=== PATIENT | female | born 1940 | race Caucasian/White ===

== ENCOUNTER 2020-04-02 09:10 | Emergency (ER) | payer MEDICARE, SELFPAY ==
[2020-04-02 09:21] VITALS: BP 123/66; PULSE 52; RESP 14; TEMP 36.4; O2SAT 98
--- NOTE | 2020-04-02 09:33 | ED.EYEPROB ---
HPI - Eye Problem General Chief complaint: Eye Problems Stated complaint: poss pink eye Time Seen by Provider: 04/02/20 09:34 Source: patient and RN notes reviewed Mode of arrival: ambulatory Limitations: no limitations History of Present Illness HPI Narrative: 79-year-old female who presents to [facility] with complaints of 2 day history of bilateral eye redness with burning, reports that her left eye is worse. Patient states that her hat and cap sewer back up and she has been cleaning up around her house sanitizing things then she developed some thick yellow drainage to her left leg with redness, burning to bilateral eyes. Patient states that vision to her left eye is blurry with excess tearing, left eye is red rimmed with some swelling and redness to eye lid, yellowish drainage stated from left eye. Right eye sclera clear with no swelling of right eye but patient verbalizes burning to her right eye. MD chief complaint: eye redness Onset (ago): day(s) (2) Onset description: gradual Duration: progressively worsening Location: both eyes Eye Symptoms: burning, redness, discharge and blurry vision (left) Place: home Mechanism: none Severity: moderate Severity scale (1-10): 4 If Pain, Quality: burning Context: other (cleaning) Associated symptoms: none Treatments Prior to Arrival: OTC eye drops Related Data Home Medications Medication Instructions Recorded Confirmed albuterol sulfate [Ventolin HFA] 2 puff INHALATION QID PRN 04/02/20 04/02/20 celecoxib 200 mg PO DAILY 04/02/20 04/02/20 cyanocobalamin (vitamin B-12) 1,000 mcg IM MONTHLY 04/02/20 04/02/20 escitalopram oxalate 10 mg PO DAILY 04/02/20 04/02/20 famotidine 20 mg PO BID 04/02/20 04/02/20 fluticasone propionate 2 spray INTRANASAL DAILY 04/02/20 04/02/20 furosemide 40 mg PO DAILY 04/02/20 04/02/20 gabapentin 100 mg PO HS 04/02/20 04/02/20 meclizine 25 mg PO TID 04/02/20 04/02/20 potassium chloride [Klor-Con M20] 20 meq PO DAILY 04/02/20 04/02/20 prochlorperazine maleate 10 mg PO Q6H PRN 04/02/20 04/02/20 Allergies Allergy/AdvReac Type Severity Reaction Status Date / Time codeine Allergy Mild Rash Verified 04/02/20 09:42 Review of Systems Review of Systems: Narrative: CONSTITUTIONAL: Denies fever, chills, or sweats. EYES:Positive for blurry vision left eye with,redness,and yellow discharge and burning sensation with right eye having burning to her right eye.. ENT: Denies rhinorrhea, congestion, sore throat, or otalgia. CARDIOVASCULAR: Denies chest pain, palpitations, bilateral peripheral edema. RESPIRATORY: Denies cough or dyspnea. GASTROINTESTINAL: Denies abdominal pain, nausea, vomiting, or diarrhea. GENITOURINARY: Denies dysuria or hematuria. SKIN: Denies rash or itching. MUSCULOSKELETAL: Denies back pain, joint pain, or myalgia. NEUROLOGIC: Denies headache, numbness, or weakness. PSYCHIATRIC: Positive anxiety or depression. All systems reviewed & are unremarkable except as noted in HPI and below PMFSH Past Medical History Medical History (Updated 04/02/20 @ 17:46 by Yamilka Gonzalez NP) Anxiety and depression Brain tumor CVA (cerebral vascular accident) Frequent falls GERD (gastroesophageal reflux disease) History of esophageal dilatation Swelling of lower extremity TIA (transient ischemic attack) Surgical History Surgical History (Updated 04/02/20 @ 17:46 by Yamilka Gonzalez NP) H/O: hysterectomy History of bladder suspension procedure History of common bile duct surgery Hx of cholecystectomy Social History Social History (Updated 04/02/20 @ 16:31 by Yamilka Gonzalez NP) Smoking packs per day: 0.5 Smoking cigarettes per day: 10.0 Years smoked: 60 Smoking pack-years: 30.00 Smoking status: Current every day smoker Tobacco type: cigarettes Living arrangements: alone Occupation/Education: retired Gender identity (if verbalized by the patient): Female Comments At time of signature, agree with nursing past medical, surgical, social his
== END 2020-04-02 10:00 | disposition home or self-care (01) ==
PROVIDERS: Emergency Provider Registered Nurse; PCP Psychiatry & Neurology Neurology
DX: H10.33 Unspecified acute conjunctivitis, bilateral (principal); F17.210 Nicotine dependence, cigarettes, uncomplicated; F41.9 Anxiety disorder, unspecified; F32.9 Major depressive disorder, single episode, unspecified; Z86.73 Personal history of transient ischemic attack (TIA), and cerebral infarction without residual deficits; K21.9 Gastro-esophageal reflux disease without esophagitis
CPT/HCPCS: 99213; G0463

== ENCOUNTER 2022-05-16 14:07 | Inpatient (IN) | payer MEDICARE, SELFPAY ==
[2022-05-16] VITALS (8 sets, daily range): BP systolic 92–123; BP diastolic 40–68; PULSE 70–105; RESP 18–20; TEMP 36.2–36.6; O2SAT 93–97
--- NOTE | ~2022-05-16 | CT_ITS ---
EXAMINATION: CT guide absc cath placement DATE: 05/17/2022 13:29 INDICATION: Diverticulitis with abscess. TECHNIQUE: The procedure including the risks, benefits, and alternatives was discussed with the patie nt. Risks discussed included bleeding and infection. The patient understood the risks and benefits an d agreed to proceed. The skin overlying the abdomen was prepped and draped in usual sterile fashion. Anesthetic was administered with 1% lidocaine subcutaneously. Moderate sedation was achieved with 1 mg Versed IV and 50 mcg fentanyl IV. An 18 gauge trochar needle was inserted into the abdominal absc ess with CT guidance. The needle was exchanged over a wire for 6 Thai and 8 Thai dilators and the n for an 8.5 Thai pigtail catheter. The catheter was stitched to the skin, and a sterile dressing w as applied. The mA was adjusted according to patient size. Iterative reconstruction technique was emp loyed. The dose-length product was 259.16 mGy-cm. There were no immediate complications. FINDINGS: CT images demonstrate the catheter within the abdominal abscess. 5 mL fluid was aspirated f or testing. IMPRESSION: 1. Successful CT-guided abdominal abscess drainage. 2. 5 mL pale, clear fluid was sent for aerobic and anaerobic cultures. Reviewed, dictated and finalized at location A. OR SUPPORT ENGINEER
--- NOTE | ~2022-05-16 | CT_ITS ---
EXAMINATION: CT abdomen pelvis w con DATE: 05/16/2022 15:37 INDICATION: Generalized abdominal pain. TECHNIQUE: Computed tomography (CT) of the abdomen and pelvis was performed with 100 mL Omnipaque 350 intravenous contrast. Automated exposure control and iterative reconstruction technique were employe d. The dose-length product was 304.06 mGy-cm. COMPARISON: None. FINDINGS: The visualized portions of the lung bases demonstrate mild atelectasis. There is mild emphy sema. No pleural effusion. The heart size is normal. There are coronary artery calcifications. No per icardial effusion. There is a small sliding hiatal hernia. There are changes of left hepatectomy and cholecystectomy. The common duct is dilated to 2.0 cm, likely not clinically significant given the no rmal liver function tests. Calcifications in the spleen are consistent with old granulomatous disease . The pancreas and adrenal glands are normal. There are cysts in left kidney measuring up to the kidn eys measuring up to 12 mm in the left. There is a 3 mm stone in left kidney. There is a 5.7 x 5.2 x 5 .0 cm fluid collection in the small bowel mesentery with areas of rim enhancement. The collection abu ts the sigmoid colon. There is a small volume of pelvic ascites. There are no pathologically enlarged lymph nodes. There is mild thoracal lumbar spondylosis. IMPRESSION: 1. 5.7 x 5.2 x 5.0 cm fluid collection in the small bowel mesentery abutting the sigmoid colon with a reas of rim enhancement suspicious for abscess. A possible etiology is small bowel or sigmoid diverti culitis. 2. Small volume of ascites. Reviewed, dictated and finalized at location A. T COLLECTIONS OFFICER IMPRESSION: 1. 5.7 x 5.2 x 5.0 cm fluid collection in the small bowel mesentery abutting th e sigmoid colon with areas of rim enhancement suspicious for abscess. A possibl e etiology is small bowel or sigmoid diverticulitis. 2. Small volume of ascites.
--- NOTE | 2022-05-16 14:48 | ED.GENADULT ---
HPI - General Adult General Chief complaint: Abdominal Pain Stated complaint: abdominal pain Time Seen by Provider: 05/16/22 14:29 History of Present Illness HPI narrative: 81-year-old female with extensive abdominal surgical history presented the emergency department for evaluation of worsening abdominal pain has been worsening over the past 3 weeks. Patient states she has had some nausea and vomiting. Patient reports decreased p.o. intake but also reports no bowel movements for the last 3 days. Patient states that she had multiple tumors resected from her colon at [facility] and had surgery on her liver, bile ducts and pancreas at [facility]. Patient also had follow-up with Dr. Birch on April 27. Patient states while the pain has been ongoing for the last few weeks it has worsened over the last few days. Patient reports she has been taking tramadol for pain control with no significant improvement. Related Data Home Medications Medication Instructions Recorded Confirmed albuterol sulfate 90 mcg/actuation 2 puff inhalation QID PRN 04/02/20 04/02/20 aerosol inhaler (Ventolin HFA) Shortness Of Breath Or Wheezing celecoxib 200 mg capsule 200 mg PO DAILY 04/02/20 04/02/20 cyanocobalamin (vitamin B-12) 1,000 mcg IM MONTHLY 04/02/20 04/02/20 1,000 mcg/mL injection solution escitalopram oxalate 10 mg tablet 10 mg PO DAILY 04/02/20 04/02/20 famotidine 20 mg tablet 20 mg PO BID 04/02/20 04/02/20 fluticasone propionate 50 2 spray intranasal DAILY 04/02/20 04/02/20 mcg/actuation nasal spray,suspension furosemide 40 mg tablet 40 mg PO DAILY 04/02/20 04/02/20 gabapentin 100 mg capsule 100 mg PO HS 04/02/20 04/02/20 meclizine 25 mg tablet 25 mg PO TID 04/02/20 04/02/20 potassium chloride 20 mEq 20 meq PO DAILY 04/02/20 04/02/20 tablet,extended release(part/cryst) (Klor-Con M) prochlorperazine maleate 10 mg 10 mg PO Q6H PRN Nausea 04/02/20 04/02/20 tablet Allergies Allergy/AdvReac Type Severity Reaction Status Date / Time codeine Allergy Mild Rash Verified 05/16/22 14:08 Review of Systems Review of Systems: CONSTITUTIONAL: Denies fever, chills, or sweats. EYES: Denies visual changes, redness, or discharge. ENT: Denies rhinorrhea, congestion, sore throat, or otalgia. CARDIOVASCULAR: Denies chest pain, palpitations, or edema. RESPIRATORY: Denies cough or dyspnea. GASTROINTESTINAL: See HPI GENITOURINARY: Denies dysuria or hematuria. SKIN: Denies rash or itching. MUSCULOSKELETAL: Denies back pain, joint pain, or myalgia. NEUROLOGIC: Denies headache, numbness, or weakness. [facility] Past Medical History Medical History (Updated 05/16/22 @ 17:37 by Justin Cline MD) Anxiety and depression Brain tumor CVA (cerebral vascular accident) Frequent falls GERD (gastroesophageal reflux disease) History of esophageal dilatation Swelling of lower extremity TIA (transient ischemic attack) Surgical History Surgical History (Updated 05/16/22 @ 17:23 by Bobby Patino DO) H/O: hysterectomy History of bladder suspension procedure History of common bile duct surgery History of resection of liver Hx of cholecystectomy Social History Social History Smoking packs per day: 0.5 Smoking cigarettes per day: 10.0 Years smoked: 60 Smoking pack-years: 30.00 Smoking status: Current every day smoker Tobacco type: cigarettes Living arrangements: alone Occupation/Education: retired Gender identity (if verbalized by the patient): Female Exam Narrative: APPEARANCE: Well appearing, no pain, no distress, well-nourished. HEAD: normocephalic, atraumatic. EYES: PERRLA/EOMI, conjunctivae clear. NOSE: Normal no drainage NECK: Supple. No adenopathy, no masses. RESPIRATORY: Airway patent, respirations nonlabored. Clear to auscultation bilaterally, no rales, rhonchi, wheezing. CARDIOVASCULAR: Regular rate and rhythm without murmurs rubs or gall
[2022-05-16 15:05] LABS: Basophils Percent Auto 0.2 % (0.2-1.2); Hematocrit 39.6 % (37.0-47.0); Hemoglobin 13.2 g/dL (12.0-15.0); Immature Granulocyte Absolute 0.05 K/mm3 (0.00-0.031); Immature Granulocyte Percent A 0.5 % (0-0.5); Lymphocytes Absolute Auto 1.14 K/mm3 (0.9-3.2); Lymphocytes Percent Auto 10.5 % (18.3-44.2); Mean Corpuscular HGB Conc 33.3 g/dl (32-36); Mean Corpuscular Volume 96.1 fl (80-100); Mean Platelet Volume 9.9 fl (7.4-10.4); Monocytes Absolute Auto 0.6 K/mm3 (0.1-0.6); Monocytes Percent Auto 5.1 % (2.6-8.5); Neutrophils Absolute Auto 9.1 K/mm3 (1.3-6.7); Neutrophils Percent Auto 83.7 % (45.5-73.1); Platelet Count Result 253 k/mm3 (150-375); Red Blood Count 4.12 M/mm3 (4.2-5.4); Red Cell Distribution Width 13.8 % (11.5-14.5); White Blood Count 10.9 K/mm3 (4.5-10.0)
[2022-05-16] MEDS: fentaNYL CITRATE INJ (*CRX) 100 MCG/2 ML VIAL 50 MCG IV PUSH (15:05)
[2022-05-16] MEDS: ONDANSETRON INJ 4 MG/2 ML VIAL IV PUSH (15:05)
[2022-05-16] MEDS: SODIUM CHLORIDE 0.9% IV 1,000 ML 250 ML IV CONT (15:05)
[2022-05-16 15:13] LABS: Lactic Acid Reflex 1.4 mmol/L (0.7-2.0)
[2022-05-16 15:15] LABS: Alanine Aminotransferase 20 U/L (6-35); Albumin Level 3.9 g/dL (3.5-5.1); Alkaline Phosphatase 74 U/L (38-126); Anion Gap 9 mmol/L (8-16); Aspartate Amino Transferase 21 U/L (14-36); Bilirubin,Total 0.8 mg/dL (0.2-1.3); Blood Urea Nitrogen 14 mg/dL (7-17); Calcium 8.2 mg/dL (8.4-10.2); Carbon Dioxide 26 mmol/L (22-30); Chloride 98 mmol/L (98-107); Estimated Glomerular Filt Rate > 60; Glucose 100 mg/dL (65-110); INR 1.4; Lipase 11 U/L (23-300); Potassium 3.3 mmol/L (3.4-5.0); Sodium 133 mmol/L (137-145)
[2022-05-16 15:16] LABS: Partial Thromboplastin Time 38.1 SECONDS (22.3-36.8)
[2022-05-16 15:24] LABS: Appearance Urine Slightly Cloudy (Clear); Bilirubin Urine 2+ (Negative); Blood Urine Negative (Negative); Color Urine Amber (Yellow); Glucose Urine UA Negative (Negative); Ketones Urine 1+ mg/dL (Negative); Leukocyte Esterase Ur Negative LEU/UL (Negative); Nitrate Urine Negative (Negative); Protein Urine 1+ mg/dL (Negative); Specific Grav Ur 1.025 (1.001-1.035); Urobilinogen Urine 0.2 mg/dL (<2.0); pH Urine 5.5 (5.0-9.0)
[2022-05-16 15:28] LABS: Add Urine Microscopic? YES; Bacteria Urine Trace /hpf; Hyaline Casts Urine 15-19 /lpf; Mucus Urine Heavy /lpf; RBC Urine 0-2 /hpf (0-2); Squamous Epithelial Cell Urine Many /hpf (Few)
--- NOTE | 2022-05-16 15:45 | PC.NURSE ---
Patient off unit to CT.
--- NOTE | 2022-05-16 17:14 | PM.CNGS ---
Assessment and Plan Assessment and plan (1) Diverticulitis of intestine with abscess without bleeding: Code(s): K57.80 - Diverticulitis of intestine, part unspecified, with perforation and abscess without bleeding Status: Acute Assessment and Plan: patient has evidence of diverticulitis. I reviewed her CT and then also reviewed it in the Radiology Department with Dr. Marshall. The source of the perforation could possibly be small bowel or sigmoid colon. The fluid collection is an somewhat of a difficult location, but attempted interventional radiology percutaneous drainage would be ideal. With her history of smoking, history of CVA, multiple previous abdominal surgeries, and advanced age, she would be a high risk surgical candidate. Any surgery would likely result in requiring an ostomy, unless the perforation was only found to be an isolated segment of small bowel. Continue bowel rest and IV antibiotics. Will reassess with frequent serial abdominal exams. (2) Tobacco use: Code(s): Z72.0 - Tobacco use Status: Acute (3) History of CVA (cerebrovascular accident): Code(s): Z86.73 - Personal history of transient ischemic attack (TIA), and cerebral infarction without residual deficits Status: Acute History of Present Illness Consult details Consult date: 05/16/22 Reason for consult: abdominal pain Requesting physician: Justin Cline MD Narrative: This is an 81-year-old woman who I am asked to see for diverticulitis with possible abscess. She presented to the emergency department today complaining of generalized abdominal pain. She states that she has been having pain for months, but this seems to have acutely worsened over the past few days. She has been having some diarrhea. She is somewhat of a poor historian but states that she has had multiple abdominal surgeries at [facility] in the past. She has had part of her liver removed and other abdominal surgeries. She has also had colonoscopies with multiple polyps removed in the past. None of her records are available here to review. She did see a land management forester several months ago and she was told that she had some problem in her colon and was going to . She then not like with this physician was telling her and spoke to her PCP about getting an other referral to GI for 2nd opinion. She was referred to Dr. Horton but is not scheduled to see him until sometime in May. She denies any fevers. Her bowels have been moving. She was recently placed on antibiotics for sinus infection. She is also complaining of hives and a lot of itching. This has been going on for several weeks. In the emergency department, a CT abdomen pelvis showed evidence of small bowel or sigmoid diverticulitis with fluid collection concerning for early abscess. Review of Systems Review of Systems: All systems reviewed & are unremarkable except as noted in HPI and below Constitutional: Constitutional: Denies chills and Denies fever(s) Eyes: Eyes: Denies change in vision ENT: Denies hearing loss, Denies neck pain and Denies sore throat Cardiovascular: Cardiovascular: Denies chest pain and Denies dyspnea Respiratory: Respiratory: Denies cough, Denies dyspnea and Denies wheezing Gastrointestinal: Gastrointestinal: Reports as per HPI Genitourinary: Genitourinary: Denies hematuria and Denies dysuria Musculoskeletal: Musculoskeletal: Denies arthralgias, Denies joint swelling and Denies neck pain Allergic/Immunologic: Allergic/Immunologic: Denies wheezing [facility] Past Medical History Medical History (Updated 05/16/22 @ 17:23 by Bobby Patino DO) Anxiety and depression Brain tumor CVA (cerebral vascular accident) Frequent falls GERD (gastroesophageal reflux disease) History of esophageal dilatation Swelling of lower extremity TIA (transient ischemic attack) Surgical History Surgical History (Updated 05/16/22 @ 17:23 by Bobby Farfan
--- NOTE | 2022-05-16 17:50 | ADMGEN ---
This patient, Iqra Yeboah, was admitted to Medical Room 245-. Patient/family oriented to hospital policies and general routines including ID bracelet, bed and alarms, visiting hours, pain management, procedures, bathroom and other care routines, personal items, smoking policy, room service/diet, and visiting hours. Information on how to activate the Rapid Response Team has been discussed. Patient/Family are encouraged to report perceived risks to care and to ask questions if they do not understand what they are told or what they should do.
[2022-05-16 18:11] LABS: Influenza A QL RT-PCR Negative (Negative); Influenza B QL RT-PCR Negative (Negative); SARS-CoV-2 RNA PCR Negative
--- NOTE | 2022-05-16 18:26 | PM.IMHP ---
H&P: HPI History of Present Illness Date/Time: 05/16/22 18:26 Chief Complaint: Abdominal pain Narrative: This is an 81-year-old female patient who has an extensive abdominal surgical history who presented to the emergency room today with worsening abdominal pain over the last 3 weeks. She also has not nausea and vomiting as well. She has had a decreased oral intake and no bowel movement for the last 3 days. The patient has had multiple polyps resected from her colon. The patient also stated that she has had resection of her liver the common bile duct and pancreas at [facility]. The patient follows with Dr. Birch. The patient has been taking tramadol without any relief. Her white count is 10.9. Her potassium is 3.3. Sodium is 133. She is negative for influenza A/B and COVID. Abdominal pelvis CT was read as the following1. 5.7 x 5.2 x 5.0 cm fluid collection in the small bowel mesentery abutting the sigmoid colon with areas of rim enhancement suspicious for abscess. A possible etiology is small bowel or sigmoid diverticulitis. 2. Small volume of ascites. Surgery has been consulted. The patient was given fentanyl, IV fluids, Zofran and fentanyl. The patient remains NPO at this time. The patient is being admitted to inpatient status on the date of service of 05/16/2022. Review of Systems Review of Systems: See HPI [facility] Past Medical History Medical History (Updated 05/16/22 @ 22:43 by Cammy Ann NP) Anxiety and depression Brain tumor Benign CVA (cerebral vascular accident) Depression with anxiety Frequent falls GERD (gastroesophageal reflux disease) History of esophageal dilatation Irritable bowel Swelling of lower extremity TIA (transient ischemic attack) Surgical History Surgical History (Updated 05/16/22 @ 22:34 by Cammy Ann NP) H/O colonoscopy with polypectomy H/O: hysterectomy History of bladder suspension procedure History of common bile duct surgery History of pancreatic surgery History of resection of liver Hx of cholecystectomy Family History Family History (Updated 05/16/22 @ 22:35 by Cammy Ann NP) Son Cancer Daughter Cancer Son Acute myocardial infarction Social History Social History (Updated 05/16/22 @ 22:37 by Cammy Ann NP) Social History: The patient lives home alone and is . The patient stated that 2 of her children have and her daughter is dying from cancer now. She only had 3 children. Her grandson helps take care of her. Patient is down to less than half a pack a cigarettes a day. Code status full code Smoking packs per day: 0.5 Smoking cigarettes per day: 10.0 Years smoked: 65 Smoking pack-years: 32.50 Smoking status: Current every day smoker Tobacco type: cigarettes Alcohol intake: never Substance use: never Substance use type: does not use Lack of Transportation: No Lack of Food: Never True Current Housing: I Have Housing Concerned About Future Housing: No Difficulty Paying Gas/Electric Bills: No Difficulty Paying for Meds: No Currently Unemployed: No Education: Associate Degree Difficulty w/ Childcare or Family Care: No Living arrangements: alone Occupation/Education: retired Gender identity (if verbalized by the patient): Female Spiritual care concerns: No Meds Home Medications and Allergies Home Medications Medication Instructions Recorded Confirmed Type albuterol sulfate 90 mcg/actuation 2 puff inhalation QID PRN 04/02/20 05/16/22 History aerosol inhaler (Ventolin HFA) Shortness Of Breath Or Wheezing cyanocobalamin (vitamin B-12) 1,000 mcg IM MONTHLY 04/02/20 05/16/22 History 1,000 mcg/mL injection solution escitalopram oxalate 10 mg tablet 5 mg PO DAILY 04/02/20 05/16/22 History furosemide 40 mg tablet 40 mg PO DAILY 04/02/20 05/16/22 History meclizine 25 mg tablet 25 mg PO TID 04/02/20 05/16/22 History azelastine 0.05 % eye drops 1
[2022-05-16] MEDS: SODIUM CHLORIDE 0.9% IV 1,000 ML 75 ML IV CONT (19:00)
[2022-05-17] VITALS (12 sets, daily range): BP systolic 101–124; BP diastolic 50–86; PULSE 61–80; RESP 16–24; TEMP 36.2–37.1; O2SAT 91–98
[2022-05-17] MEDS: KCL 20 MEQ/SW 100 ML 100 ML 50 MEQ IVPB (01:30)
[2022-05-17] MEDS: diphenhydrAMINE HCl CAP 25 MG CAPSULE PO ×2 (02:31→22:32)
[2022-05-17 05:40] LABS: Hematocrit 35.5 % (37.0-47.0); Hemoglobin 11.5 g/dL (12.0-15.0); Mean Corpuscular HGB Conc 32.4 g/dl (32-36); Mean Corpuscular Hemoglobin 31.4 pg (26-34); Platelet Count Result 240 k/mm3 (150-375); Red Blood Count 3.66 M/mm3 (4.2-5.4); Red Cell Distribution Width 13.9 % (11.5-14.5); White Blood Count 9.2 K/mm3 (4.5-10.0)
[2022-05-17 05:49] LABS: Anion Gap 7 mmol/L (8-16); Blood Urea Nitrogen 14 mg/dL (7-17); Calcium 7.4 mg/dL (8.4-10.2); Carbon Dioxide 26 mmol/L (22-30); Chloride 102 mmol/L (98-107); Estimated Glomerular Filt Rate > 60; Glucose 64 mg/dL (65-110); Magnesium 1.5 mg/dL (1.6-2.3); Potassium 3.6 mmol/L (3.4-5.0); Sodium 135 mmol/L (137-145)
[2022-05-17 05:51] LABS: Lactic Acid Reflex 0.6 mmol/L (0.7-2.0)
[2022-05-17] MEDS: SODIUM CHLORIDE 0.9% IV 1,000 ML 75 ML IV CONT (06:03)
[2022-05-17 07:54] LABS: Glucose Point of Care 69 mg/dl (65-105)
[2022-05-17] MEDS: DEXTROSE 50% 25 GM/50 ML SYRINGE IV PUSH (08:01)
[2022-05-17 08:40] LABS: Glucose Point of Care 127 mg/dl (65-105)
[2022-05-17] MEDS: KCL 20 MEQ/D5/0.9% SOD CHL 1,000 ML 100 ML IV CONT (08:58)
--- NOTE | 2022-05-17 12:34 | WPDMODSED ---
Moderate Sedation Note-Pt Data Patient Data Diagnosis: Abdominal abscess. Present Complaint: Abdominal abscess. Procedure to be performed/Plan: CT-guided abdominal abscess drainage. Allergies Allergy/AdvReac Type Severity Reaction Status Date / Time codeine Allergy Mild Rash Verified 05/16/22 17:48 Home Medications Medication Instructions Recorded Confirmed Type albuterol sulfate 90 mcg/actuation 2 puff inhalation QID PRN 04/02/20 05/16/22 History aerosol inhaler (Ventolin HFA) Shortness Of Breath Or Wheezing cyanocobalamin (vitamin B-12) 1,000 mcg IM MONTHLY 04/02/20 05/16/22 History 1,000 mcg/mL injection solution escitalopram oxalate 10 mg tablet 5 mg PO DAILY 04/02/20 05/16/22 History furosemide 40 mg tablet 40 mg PO DAILY 04/02/20 05/16/22 History meclizine 25 mg tablet 25 mg PO TID 04/02/20 05/16/22 History azelastine 0.05 % eye drops 1 drp EACH EYE DAILY 05/16/22 05/16/22 History azelastine 137 mcg (0.1 %) nasal 1 spray intranasal BID 05/16/22 05/16/22 History spray aerosol linaclotide 72 mcg capsule 72 mcg PO DAILY 05/16/22 05/16/22 History (Linzess) pantoprazole 40 mg tablet,delayed 40 mg PO DAILY 05/16/22 05/16/22 History release pimecrolimus 1 % topical cream 1 applic topical BID 05/16/22 05/16/22 History tramadol 50 mg tablet 50 mg PO Q6H PRN Pain (Scale Score 05/16/22 05/16/22 History 4-6) Current Medications: Active Medications Albuterol (Albuterol Sulfate (*Sp) Aerosol 1 Puff) 2 puff INHALATION QID PRN PRN Reason: Shortness Of Breath Or Wheezing Azelastine HCl (Azelastine Hcl Nasal 0.1% 137 Mcg/Spr 30 Ml Btl) 1 spray NASAL BID SERGIO Last Admin: 05/17/22 07:20 Dose: Not Given Dextrose (Dextrose 50% 25 Gm/50 Ml Syringe) 12.5 gm IV PUSH PRN PRN; Protocol PRN Reason: Hypoglycemia Last Admin: 05/17/22 08:01 Dose: 12.5 gm Diphenhydramine HCl (Diphenhydramine Hcl Cap 25 Mg Capsule) 25 mg PO Q6H PRN PRN Reason: Itching Last Admin: 05/17/22 02:31 Dose: 25 mg Fentanyl Citrate (Fentanyl Citrate Inj (*Crx) 100 Mcg/2 Ml Vial) 25 mcg IV PUSH Q2H PRN PRN Reason: Pain Rated 7-10 Glucagon (Glucagon For Inj 1 Mg Vial) 1 mg IM PRN PRN; Protocol PRN Reason: Hypoglycemia Glucose (Glucose Oral Gel 15 Gm Of Glucse In 37.5 Gm Tube) 15 gm PO PRN PRN; Protocol PRN Reason: Hypoglycemia Acetaminophen (Ofirmev 1,000 Mg Ivpb) 1,000 mg in 100 mls @ 400 mls/hr IVPB Q6H PRN PRN Reason: Pain Rated 1-3 Stop: 05/17/22 21:09 Last Infusion: 05/17/22 07:56 Dose: Infused Piperacillin/Tazobactam/Dextrose (Zosyn 3.375 Gm/D5w 50ml Pm) 3.375 gm in 50 mls @ 100 mls/hr IVPB Q6H [facility] Last Infusion: 05/17/22 06:33 Dose: Infused Potassium Chloride/Dextrose/Sod Cl (Kcl 20 Meq/D5/0.9% Sod Chl) 1,000 mls @ 100 mls/hr IV CONT .Q10H [facility] Last Admin: 05/17/22 08:58 Dose: 100 mls/hr Dextrose (Dextrose 5% 1,000 Ml) 1,000 mls @ 100 mls/hr IVPB PRN PRN; Protocol PRN Reason: Hypoglycemia Lorazepam (Lorazepam Inj (*Crx) 2 Mg/Ml Vial) 0.5 mg IV PUSH Q6H PRN PRN Reason: Anxiety Ondansetron HCl (Ondansetron Inj 4 Mg/2 Ml Vial) 4 mg IV PUSH Q4H PRN PRN Reason: Nausea Pimecrolimus (Pimecrolimus 1% 30 Gm Cream) 1 applic TOPICAL BID [facility] Last Admin: 05/17/22 07:20 Dose: Not Given Sedation/Anesthesia: No previous sedation/anesthesia problems (including family history). [facility] Past Medical History Medical History (Updated 05/16/22 @ 22:43 by Cammy Ann NP) Anxiety and depression Brain tumor Benign CVA (cerebral vascular accident) Depression with anxiety Frequent falls GERD (gastroesophageal reflux disease) History of esophageal dilatation Irritable bowel Swelling of lower extremity TIA (transient ischemic attack) Surgical History Surgical History (Updated 05/16/22 @ 22:34 by Cammy Ann NP) H/O colonoscopy with polypectomy H/O: hysterectomy History of bladder suspension procedure History of common bile duct surgery History of pancreatic surgery History of resection
[2022-05-17] MEDS: fentaNYL CITRATE INJ (*CRX) 100 MCG/2 ML VIAL 25 MCG IV PUSH (13:46)
[2022-05-17 14:55] LABS: Glucose Point of Care 105 mg/dl (65-105)
--- NOTE | 2022-05-17 15:50 | PM.IMPN ---
Progress Note: A&P Assessment and Plan (1) Abscess of sigmoid colon due to diverticulitis: Code(s): K57.20 - Diverticulitis of large intestine with perforation and abscess without bleeding Status: Acute Assessment and Plan: c/o abdominal pain for approximately [address] abd/pelvis showd 5.7 x 5.2 x 5 cm fluid collection abutting the sigmoid colon suspicious for abscess secondary to small bowel or sigmoid diverticulitis. WBC 10.9 on admission. s/p IR abdominal abscess drain 05/17/22 General surgery consulted and appreciate recommendations. Continue IV Zosyn Q6 hours. Blood culture and abscess drainage culture pending. NPO IV maintenance fluids and IV analgesics. She has a codeine allergy. (2) Irritable bowel: Code(s): K58.9 - Irritable bowel syndrome without diarrhea Status: Chronic Assessment and Plan: Chronic, holding Linzess for now. (3) History of CVA (cerebrovascular accident): Code(s): Z86.73 - Personal history of transient ischemic attack (TIA), and cerebral infarction without residual deficits Status: Chronic Assessment and Plan: H/o stroke without residual. To be aware. (4) Depression with anxiety: Code(s): F41.8 - Other specified anxiety disorders Status: Chronic Assessment and Plan: Chronic, resume Lexapro Continue IV Ativan p.r.n. (5) Hypokalemia: Code(s): E87.6 - Hypokalemia Status: Acute Assessment and Plan: Potassium 3.3 on admission. 05/17/22 Magnesium 1.5, K 3.6. Patient is NPO. Give Mag sulfate 2 grams IVPB x1. Add 20 mEQ IV KCl to maintenance IV fluids. Monitor BMP (6) Tobacco use: Code(s): Z72.0 - Tobacco use Status: Chronic Assessment and Plan: patient smokes 1/2 pack for 65 years with 32.5 pack-year. 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 (7) Hypoglycemia: Code(s): E16.2 - Hypoglycemia, unspecified Status: Acute Assessment and Plan: Fasting glucose 69 this morning. Patient is NPO for diverticulitis with abscess. Change IV fluids to D5NS with 20 mEQ KCl @100 mL/hour. Accu-checks Q6 hours with hypoglycemia protocol. No h/o diabetes. Plan Code status: full code Patient is from home and lives alone. Time Spent With Patient Time: 25 minutes spent patient assessment and reviewing labs, vitals and imaging. Subjective Date/time seen: 05/17/22 15:50 Patient is an 81 yo female with history of multiple abdominal surgeries, stroke, and GERD. She presented to the ED for c/o abdominal pain for approximately [address] abd/pelvis showd 5.7 x 5.2 x 5 cm fluid collection abutting the sigmoid colon suspicious for abscess secondary to small bowel or sigmoid diverticulitis. Patient found sitting up in the chair. She c/o LLQ abdominal pain radiating to her left flank. She underwent IR drain placement today. She denies nausea, vomiting, or dysuria. She is wanting to have warm water or tea. Review of Systems Review of Systems: All systems reviewed & are unremarkable except as noted in HPI and below Exam Narrative: General: Mild distress. Thin, frail older adult female. Sitting up in the chair. Mental Status/Psych: Awake, alert and oriented x3 with clear speech. Neutral mood and affect. Pleasant and cooperative. Skin: fair, warm, and dry. LLQ abdominal drain patent with small, clear yellow drainage. Surrounding skin without erythema. HEENT: Normocephalic. Sclera is non-icteric. Pupils equal and round. Grossly normal hearing. Oral mucosa dry. Heart: S1 and S2 regular rate and rhythm. No murmurs, gallops, or rubs auscultated. Chest: Respirations even and unlabored. Lung sounds are clear to auscultation in all lobes bilaterally without wheezes, rhonchi, or rales. Abdomen: Soft, round and tender to palpation LLQ to light touch.? Bowel sounds hypoactive in all 4 quadrants. Extremities:? Grossly normal ROM all extremities. No edema. R
--- NOTE | 2022-05-17 16:29 | PM.PNGS ---
Progress Note: A&P Assessment and Plan (1) Diverticulitis of intestine with abscess without bleeding: Code(s): K57.80 - Diverticulitis of intestine, part unspecified, with perforation and abscess without bleeding Status: Acute Assessment and Plan: Still having abdominal pain. S/p perc drainage in IR today. Cultures sent and pending. Will keep NPO with ice chips for now since she is still having a fair amount of abdominal pain. Continue IV antibiotics Repeat labs tomorrow (2) Tobacco use: Code(s): Z72.0 - Tobacco use Status: Chronic (3) History of CVA (cerebrovascular accident): Code(s): Z86.73 - Personal history of transient ischemic attack (TIA), and cerebral infarction without residual deficits Status: Chronic Plan I have discussed the patient's case and plan of care with Dr. Patino. Subjective Subjective Date/Time Seen: 05/17/22 16:29 Patient reports: still having pain, flatus, no bowel movement and afebrile Interval history: Patient seen and examined. She had her perc drain placed in IR today successfully. She is still having abdominal pain and does not feel it has improved since admission. Her pain is across her entire lower abdomen and is radiating to her back. She does not feel like she can even lay in bed because she is so uncomfortable. She is also complaining of thirst. No nausea or bloating. Review of Systems Review of Systems: All systems reviewed & are unremarkable except as noted in HPI and below Exam Const: General: awake and uncomfortable GI: Inspection: non-distended and other (perc drain with serous output) GI Palp: Yes Soft to palpation, Yes Tenderness to palpation present (GI) (diffusely tender throughout), Yes Guarding due to palpation present (GI) and No Rebound tenderness present Auscultation: Hypoactive bowel sounds present Objective Data Vital Signs Vital Signs: Vital Signs - 24 hr 05/16/22 22:00 05/16/22 20:00 05/16/22 21:30 Temperature 97.7 F 97.8 F Pulse Rate 105 H 70 Respiratory Rate 20 20 Blood Pressure 92/40 L 97/50 L Pulse Oximetry 93 94 Oxygen Delivery Room Air Oxygen Flow Rate 05/17/22 04:32 05/17/22 12:40 05/17/22 13:15 Temperature 98.8 F Pulse Rate 64 71 65 Respiratory Rate 20 22 H 22 H Blood Pressure 110/55 L 124/85 103/60 Pulse Oximetry 91 96 96 Oxygen Delivery Oxygen Flow Rate 3 3 05/17/22 12:45 05/17/22 12:50 05/17/22 12:55 Temperature Pulse Rate 70 68 65 Respiratory Rate 22 H 18 18 Blood Pressure 112/56 L 110/86 101/64 Pulse Oximetry 95 95 94 Oxygen Delivery Oxygen Flow Rate 3 3 3 05/17/22 13:00 05/17/22 13:05 05/17/22 13:10 Temperature Pulse Rate 64 64 65 Respiratory Rate 21 H 20 24 H Blood Pressure 105/60 113/53 L 104/68 Pulse Oximetry 94 96 98 Oxygen Delivery Oxygen Flow Rate 3 3 3 05/17/22 13:20 05/17/22 14:49 Temperature 97.1 F L Pulse Rate 65 80 Respiratory Rate 22 H 16 Blood Pressure 108/59 L 106/65 Pulse Oximetry 96 94 Oxygen Delivery Oxygen Flow Rate 3 Intake/Output Intake/Output: Intake & Output 05/14/22 05/15/22 05/16/22 05/17/22 23:59 23:59 23:59 23:59 Intake Total 150 1350 Output Total 400 Balance 150 950 Meds/Results Medications: Active Medications Generic Name Dose Route Start Last Admin Trade Name Freq PRN Reason Stop Dose Admin Albuterol 2 puff 05/16/22 22:40 Albuterol Sulfate (*Sp) Aerosol 1 Puff INHALATION QID PRN Shortness Of Breath Or Wheezing Azelastine HCl 1 spray 05/17/22 09:00 05/17/22 16:15 Azelastine Hcl Nasal 0.1% 137 Mcg/Spr 30 Ml Btl NASAL Not Given BID SERGIO Dextrose 12.5 gm 05/17/22 07:47 05/17/22 08:01 Dextrose 50% 25 Gm/50 Ml Syringe IV PUSH 12.5 gm PRN PRN Administration Hypoglycemia Protocol Diphenhydramine HCl 25 mg 05/17/22 01:59 05/17/22 02:31 Diphenhydramine Hcl Cap 25 Mg Capsule PO 25 mg Q6H PRN Administration Itchin
[2022-05-17] MEDS: MAGNESIUM SULF 2 GM/WATER 50ML 2 GM/50 ML BAG IVPB (16:59)
[2022-05-17 19:24] LABS: Glucose Point of Care 109 mg/dl (65-105)
[2022-05-18 00:37] LABS: Glucose Point of Care 145 mg/dl (65-105)
[2022-05-18] MEDS: KCL 20 MEQ/D5/0.9% SOD CHL 1,000 ML 100 ML IV CONT ×2 (01:36→19:16)
[2022-05-18] MEDS: fentaNYL CITRATE INJ (*CRX) 100 MCG/2 ML VIAL 25 MCG IV PUSH ×2 (03:55→09:04)
[2022-05-18 05:20] VITALS: BP 110/56; PULSE 76; RESP 17; TEMP 36.6; O2SAT 93
[2022-05-18 05:29] LABS: Basophils Percent Auto 0.4 % (0.2-1.2); Eosinophils Absolute Auto 0.1 K/mm3 (0-0.3); Eosinophils Percent Auto 1.1 % (0-4.4); Hematocrit 34.4 % (37.0-47.0); Hemoglobin 11.2 g/dL (12.0-15.0); Immature Granulocyte Absolute 0.03 K/mm3 (0.00-0.031); Immature Granulocyte Percent A 0.6 % (0-0.5); Lymphocytes Percent Auto 16.9 % (18.3-44.2); Mean Corpuscular HGB Conc 32.6 g/dl (32-36); Mean Corpuscular Volume 98.3 fl (80-100); Mean Platelet Volume 10.1 fl (7.4-10.4); Monocytes Absolute Auto 0.4 K/mm3 (0.1-0.6); Monocytes Percent Auto 7.7 % (2.6-8.5); Neutrophils Absolute Auto 3.9 K/mm3 (1.3-6.7); Neutrophils Percent Auto 73.3 % (45.5-73.1); Platelet Count Result 226 k/mm3 (150-375); White Blood Count 5.3 K/mm3 (4.5-10.0)
[2022-05-18 05:54] LABS: Alanine Aminotransferase 16 U/L (6-35); Albumin Level 2.9 g/dL (3.5-5.1); Alkaline Phosphatase 65 U/L (38-126); Anion Gap 3 mmol/L (8-16); Aspartate Amino Transferase 20 U/L (14-36); Bilirubin,Total 0.4 mg/dL (0.2-1.3); Blood Urea Nitrogen 7 mg/dL (7-17); Calcium 7.3 mg/dL (8.4-10.2); Carbon Dioxide 25 mmol/L (22-30); Chloride 106 mmol/L (98-107); Estimated Glomerular Filt Rate > 60; Glucose 143 mg/dL (65-110); Magnesium 2.3 mg/dL (1.6-2.3); Potassium 3.1 mmol/L (3.4-5.0); Sodium 134 mmol/L (137-145)
[2022-05-18 06:12] LABS: CRP 12.8 mg/dL (<1.0)
--- NOTE | 2022-05-18 08:16 | PM.IMPN ---
Progress Note: A&P Assessment and Plan (1) Abscess of sigmoid colon due to diverticulitis: Code(s): K57.20 - Diverticulitis of large intestine with perforation and abscess without bleeding Status: Acute Assessment and Plan: c/o abdominal pain for approximately [address] abd/pelvis showd 5.7 x 5.2 x 5 cm fluid collection abutting the sigmoid colon suspicious for abscess secondary to small bowel or sigmoid diverticulitis. WBC 10.9 on admission. s/p IR abdominal abscess drain 05/17/22 management per general surgery Continue IV Zosyn Q6 hours, started 05/17/22. Blood culture negative to date. Abscess gram stain without organism growth to date and culture pending. diet per general surgery. IV maintenance fluids and IV/PO analgesics. She has a codeine allergy. (2) Irritable bowel: Code(s): K58.9 - Irritable bowel syndrome without diarrhea Status: Chronic Assessment and Plan: Chronic, holding Linzess for now. (3) History of CVA (cerebrovascular accident): Code(s): Z86.73 - Personal history of transient ischemic attack (TIA), and cerebral infarction without residual deficits Status: Chronic Assessment and Plan: H/o stroke without residual. To be aware. (4) Depression with anxiety: Code(s): F41.8 - Other specified anxiety disorders Status: Chronic Assessment and Plan: Chronic, resume Lexapro Continue IV Ativan p.r.n. (5) Hypokalemia: Code(s): E87.6 - Hypokalemia Status: Acute Assessment and Plan: Potassium 3.3 on admission. 05/17/22 Magnesium 1.5, K 3.6. Patient is NPO. Give Mag sulfate 2 grams IVPB x1. Add 20 mEQ IV KCl to maintenance IV fluids. 05/18/22 K 3.1. Magnesium 2.3. Continue IV fluids with KCl 20 mEQ and give additional 40 mEQ IVPB x1 Repeat chemistry tomorrow. 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 (7) Hypoglycemia: Code(s): E16.2 - Hypoglycemia, unspecified Status: Acute Assessment and Plan: Fasting glucose 69 this morning. Patient is NPO for diverticulitis with abscess. Change IV fluids to D5NS with 20 mEQ KCl @100 mL/hour. Accu-checks Q6 hours with hypoglycemia protocol. No h/o diabetes. POC glucose stable today 05/18. Continue for additional 24 hours then dc if stable and patient is tolerating oral intake. Plan Code status: full code Patient is from home and lives alone. Time Spent With Patient Time: 20 minutes reviewing labs, vitals, nursing documentation, as well as patient assessment and education. Subjective Date/time seen: 05/18/22 08:16 Interval history: Patient is an 81 yo female with history of multiple abdominal surgeries, stroke, and GERD. She presented to the ED for c/o abdominal pain for approximately [address] abd/pelvis showd 5.7 x 5.2 x 5 cm fluid collection abutting the sigmoid colon suspicious for abscess secondary to small bowel or sigmoid diverticulitis. She still has left lower abdominal pain and abscess drain insertion site pain. She is still taking IV fentanyl for pain. She had 2 loose BMs yesterday and 1 small today. No nausea, vomiting, chest pain, SOB, dysuria, dizziness, muscle cramps or palpitations. No overnight events. Review of Systems Review of Systems: All systems reviewed & are unremarkable except as noted in HPI and below Exam Narrative: General: No acute distress. Sitting up in the chair. Mental Status/Psych: Awake, alert and oriented x3 with clear speech. Neutral mood and affect. Skin: fair, warm, and dry. LLQ abdominal drain patent with small, clear yellow drainage. Surrounding skin without erythema. HEENT: Normocephalic. Sclera is non-icteric. Pupils equal and round. Oral mucosa dry and pink. Heart: S1 and S2 regular rate and rhythm.
[2022-05-18] MEDS: PIMECROLIMUS 1% 30 GM CREAM 1 APPLIC TOPICAL (08:23)
[2022-05-18] MEDS: POTASSIUM CHLORIDE INJ 40 MEQ in SODIUM CHLORIDE 0.9% IV 500 ML 130 MEQ IVPB (09:04)
--- NOTE | 2022-05-18 10:31 | PM.PNGS ---
Progress Note: A&P Assessment and Plan (1) Diverticulitis of intestine with abscess without bleeding: Code(s): K57.80 - Diverticulitis of intestine, part unspecified, with perforation and abscess without bleeding Status: Acute Assessment and Plan: Continue IV Zosyn Start clear liquids today Monitor drain output--doesn't appear to be abscess, await cultures. (2) Tobacco use: Code(s): Z72.0 - Tobacco use Status: Chronic (3) History of CVA (cerebrovascular accident): Code(s): Z86.73 - Personal history of transient ischemic attack (TIA), and cerebral infarction without residual deficits Status: Chronic Subjective Subjective Date/Time Seen: 05/18/22 10:31 Interval history: Pain improving. Bowels moving. No fevers. Exam GI: Inspection: non-distended GI Palp: Yes Soft to palpation and Yes Tenderness to palpation present (GI) (around drain) Other: Pigtail drain with minimal serous output Objective Data Vital Signs Vital Signs: Vital Signs - 24 hr 05/17/22 12:40 05/17/22 13:15 05/17/22 12:45 Temperature Pulse Rate 71 65 70 Respiratory Rate 22 H 22 H 22 H Blood Pressure 124/85 103/60 112/56 L Pulse Oximetry 96 96 95 Oxygen Flow Rate 3 3 3 05/17/22 12:50 05/17/22 12:55 05/17/22 13:00 Temperature Pulse Rate 68 65 64 Respiratory Rate 18 18 21 H Blood Pressure 110/86 101/64 105/60 Pulse Oximetry 95 94 94 Oxygen Flow Rate 3 3 3 05/17/22 13:05 05/17/22 13:10 05/17/22 13:20 Temperature Pulse Rate 64 65 65 Respiratory Rate 20 24 H 22 H Blood Pressure 113/53 L 104/68 108/59 L Pulse Oximetry 96 98 96 Oxygen Flow Rate 3 3 3 05/17/22 14:49 05/17/22 20:42 05/18/22 05:20 Temperature 36.2 C L 36.7 C 36.6 C Pulse Rate 80 61 76 Respiratory Rate 16 18 17 Blood Pressure 106/65 106/50 L 110/56 L Pulse Oximetry 94 94 93 Oxygen Flow Rate Intake/Output Intake/Output: Intake & Output 05/15/22 05/16/22 05/17/22 05/18/22 23:59 23:59 23:59 23:59 Intake Total 150 1650 1050 Output Total 730 600 Balance 150 920 450 Meds/Results Medications: Active Medications Generic Name Dose Route Start Last Admin Trade Name Freq PRN Reason Stop Dose Admin Albuterol 2 puff 05/16/22 22:40 Albuterol Sulfate (*Sp) Aerosol 1 Puff INHALATION QID PRN Shortness Of Breath Or Wheezing Azelastine HCl 1 spray 05/17/22 09:00 05/18/22 08:38 Azelastine Hcl Nasal 0.1% 137 Mcg/Spr 30 Ml Btl NASAL Not Given BID SERGIO Dextrose 12.5 gm 05/17/22 07:47 05/17/22 08:01 Dextrose 50% 25 Gm/50 Ml Syringe IV PUSH 12.5 gm PRN PRN Administration Hypoglycemia Protocol Diphenhydramine HCl 25 mg 05/17/22 01:59 05/17/22 22:32 Diphenhydramine Hcl Cap 25 Mg Capsule PO 25 mg Q6H PRN Administration Itching Fentanyl Citrate 25 mcg 05/16/22 21:11 05/18/22 09:04 Fentanyl Citrate Inj (*Crx) 100 Mcg/2 Ml Vial IV PUSH 25 mcg Q2H PRN Administration Pain Rated 7-10 Glucagon 1 mg 05/17/22 07:47 Glucagon For Inj 1 Mg Vial IM PRN PRN Hypoglycemia Protocol Glucose 15 gm 05/17/22 07:47 Glucose Oral Gel 15 Gm Of Glucse In 37.5 Gm Tube PO PRN PRN Hypoglycemia Protocol Piperacillin/Tazobactam/Dextrose 3.375 gm in 50 mls @ 100 mls/hr 05/17/22 00:00 05/18/22 06:17 Zosyn 3.375 Gm/D5w 50ml Pm IVPB 100 mls/hr Q6H SERGIO Administration Potassium Chloride/Dextrose/Sod Cl 1,000 mls @ 100 mls/hr 05/17/22 08:30 05/18/22 01:36 Kcl 20 Meq/D5/0.9% Sod Chl IV CONT 100 mls/hr .Q10H SERGIO Administration Dextrose 1,000 mls @ 100 mls/hr 05/17/22 07:47 Dextrose 5% 1,000 Ml IVPB PRN PRN Hypoglycemia Protocol Acetaminophen 1,000 mg in 100 mls @ 400 mls/hr 05/17/22 21:29 05/17/22 22:40 Ofirmev 1,000 Mg Ivpb IVPB 05/18/22 21:28 Infused Q6H PRN Infusion Pain 1-6 Potassium Chloride 40 meq/ 520 mls @ 130 mls/hr 05/18/22 08:25 05/18/22 09:04 S
[2022-05-18 12:22] LABS: Glucose Point of Care 90 mg/dl (65-105)
[2022-05-18 15:05] VITALS: BP 115/51; PULSE 94; RESP 16; TEMP 36.6; O2SAT 95
[2022-05-18 15:50] VITALS: O2SAT 96
[2022-05-18 17:06] LABS: Glucose Point of Care 127 mg/dl (65-105)
[2022-05-18] MEDS: traMADol HCL (*CRX) 50 MG TABLET PO (18:16)
[2022-05-18 21:15] VITALS: BP 118/74; PULSE 77; RESP 17; TEMP 37.1; O2SAT 97
[2022-05-18] MEDS: ACETAMINOPHEN 500 MG TABLET 1000 MG PO (23:35)
[2022-05-19] MEDS: diphenhydrAMINE HCl CAP 25 MG CAPSULE PO ×2 (00:54→11:25)
[2022-05-19] MEDS: traMADol HCL (*CRX) 50 MG TABLET PO ×3 (00:54→21:13)
[2022-05-19 05:27] VITALS: BP 132/64; PULSE 65; RESP 18; TEMP 37.1; O2SAT 97
[2022-05-19] MEDS: KCL 20 MEQ/D5/0.9% SOD CHL 1,000 ML 100 ML IV CONT (05:49)
[2022-05-19 06:14] LABS: Basophils Percent Auto 0.5 % (0.2-1.2); Eosinophils Absolute Auto 0.1 K/mm3 (0-0.3); Eosinophils Percent Auto 2.2 % (0-4.4); Hematocrit 33.8 % (37.0-47.0); Hemoglobin 10.7 g/dL (12.0-15.0); Immature Granulocyte Absolute 0.02 K/mm3 (0.00-0.031); Immature Granulocyte Percent A 0.5 % (0-0.5); Lymphocytes Absolute Auto 1.14 K/mm3 (0.9-3.2); Lymphocytes Percent Auto 27.4 % (18.3-44.2); Mean Corpuscular HGB Conc 31.7 g/dl (32-36); Mean Corpuscular Hemoglobin 31.5 pg (26-34); Mean Corpuscular Volume 99.4 fl (80-100); Mean Platelet Volume 10.3 fl (7.4-10.4); Monocytes Absolute Auto 0.4 K/mm3 (0.1-0.6); Monocytes Percent Auto 9.4 % (2.6-8.5); Neutrophils Absolute Auto 2.5 K/mm3 (1.3-6.7); Platelet Count Result 243 k/mm3 (150-375); White Blood Count 4.2 K/mm3 (4.5-10.0)
[2022-05-19 06:41] LABS: Alanine Aminotransferase 17 U/L (6-35); Albumin Level 2.6 g/dL (3.5-5.1); Alkaline Phosphatase 59 U/L (38-126); Anion Gap 4 mmol/L (8-16); Aspartate Amino Transferase 21 U/L (14-36); Bilirubin,Total 0.3 mg/dL (0.2-1.3); Blood Urea Nitrogen 2 mg/dL (7-17); Calcium 7.1 mg/dL (8.4-10.2); Carbon Dioxide 21 mmol/L (22-30); Chloride 114 mmol/L (98-107); Estimated Glomerular Filt Rate > 60; Glucose 119 mg/dL (65-110); Potassium 3.4 mmol/L (3.4-5.0); Sodium 139 mmol/L (137-145)
[2022-05-19 09:02] VITALS: RESP 18; O2SAT 97
[2022-05-19] MEDS: AZELASTINE HCL NASAL 0.1% 137 MCG/SPR 30 ML BTL 1 SPRAY NASAL ×2 (09:02→17:12)
[2022-05-19] MEDS: THYROID 30 MG TABLET 60 MG PO (09:02)
[2022-05-19] MEDS: PIMECROLIMUS 1% 30 GM CREAM 1 APPLIC TOPICAL ×2 (09:02→17:12)
--- NOTE | 2022-05-19 12:53 | PM.PNGS ---
Progress Note: A&P Assessment and Plan (1) Diverticulitis of intestine with abscess without bleeding: Code(s): K57.80 - Diverticulitis of intestine, part unspecified, with perforation and abscess without bleeding Status: Acute Assessment and Plan: Advance to full liquids today, stop IV fluids Cultures growing S. aureus and K. pneumonia--doesn't seem likely to be GI source Will remove drain once output is decreasing. (2) Tobacco use: Code(s): Z72.0 - Tobacco use Status: Chronic (3) History of CVA (cerebrovascular accident): Code(s): Z86.73 - Personal history of transient ischemic attack (TIA), and cerebral infarction without residual deficits Status: Chronic Subjective Subjective Date/Time Seen: 05/19/22 12:53 Interval history: Tolerating full liquids. Afebrile. Pain controlled. Bowels moving. Exam GI: Inspection: non-distended GI Palp: Yes Soft to palpation, Yes Tenderness to palpation present (GI) (minimal around drain) and No Guarding due to palpation present (GI) Other: Pigtail drain with minimal clear yellow output Objective Data Vital Signs Vital Signs: Vital Signs - 24 hr 05/18/22 15:05 05/18/22 15:50 05/18/22 21:15 Temperature 36.6 C 37.1 C Pulse Rate 94 77 Respiratory Rate 16 17 Blood Pressure 115/51 L 118/74 Pulse Oximetry 95 96 97 Oxygen Delivery Room Air 05/19/22 05:27 05/19/22 09:02 Temperature 37.1 C Pulse Rate 65 Respiratory Rate 18 18 Blood Pressure 132/64 Pulse Oximetry 97 97 Oxygen Delivery Room Air Intake/Output Intake/Output: Intake & Output 05/16/22 05/17/22 05/18/22 05/19/22 23:59 23:59 23:59 23:59 Intake Total 150 1650 3200 2063 Output Total 730 625 Balance 308 195 7925 2063 Meds/Results Medications: Active Medications Generic Name Dose Route Start Last Admin Trade Name Freq PRN Reason Stop Dose Admin Acetaminophen 1,000 mg 05/18/22 22:13 05/18/22 23:35 Acetaminophen 500 Mg Tablet PO 1,000 mg Q6H PRN Administration Mild Pain (1-3) or Fever Albuterol 2 puff 05/16/22 22:40 Albuterol Sulfate (*Sp) Aerosol 1 Puff INHALATION QID PRN Shortness Of Breath Or Wheezing Azelastine HCl 1 spray 05/17/22 09:00 05/19/22 09:02 Azelastine Hcl Nasal 0.1% 137 Mcg/Spr 30 Ml Btl NASAL 1 spray BID SERGIO Administration Dextrose 12.5 gm 05/17/22 07:47 05/17/22 08:01 Dextrose 50% 25 Gm/50 Ml Syringe IV PUSH 12.5 gm PRN PRN Administration Hypoglycemia Protocol Diphenhydramine HCl 25 mg 05/17/22 01:59 05/19/22 11:25 Diphenhydramine Hcl Cap 25 Mg Capsule PO 25 mg Q6H PRN Administration Itching Fentanyl Citrate 25 mcg 05/16/22 21:11 05/18/22 09:04 Fentanyl Citrate Inj (*Crx) 100 Mcg/2 Ml Vial IV PUSH 25 mcg Q2H PRN Administration Pain Rated 7-10 Glucagon 1 mg 05/17/22 07:47 Glucagon For Inj 1 Mg Vial IM PRN PRN Hypoglycemia Protocol Glucose 15 gm 05/17/22 07:47 Glucose Oral Gel 15 Gm Of Glucse In 37.5 Gm Tube PO PRN PRN Hypoglycemia Protocol Piperacillin/Tazobactam/Dextrose 3.375 gm in 50 mls @ 100 mls/hr 05/17/22 00:00 05/19/22 11:56 Zosyn 3.375 Gm/D5w 50ml Pm IVPB Infused Q6H SERGIO Infusion Dextrose 1,000 mls @ 100 mls/hr 05/17/22 07:47 Dextrose 5% 1,000 Ml IVPB PRN PRN Hypoglycemia Protocol Lorazepam 0.5 mg 05/18/22 15:16 Lorazepam (*Crx) 0.5 Mg Tablet PO Q6H PRN Anxiety Ondansetron HCl 4 mg 05/16/22 16:47 Ondansetron Inj 4 Mg/2 Ml Vial IV PUSH Q4H PRN Nausea Pimecrolimus 1 applic 05/17/22 09:00 05/19/22 09:02 Pimecrolimus 1% 30 Gm Cream TOPICAL 1 applic BID SERGIO Administration Thyroid 60 mg 05/18/22 09:00 05/19/22 09:02 Thyroid 30 Mg Tablet PO 60 mg QAM SERGIO Administration Tramadol HCl 50 mg 05/18/22 10:30 05/19/22 11:24 Tramadol Hcl (*Crx) 50 Mg Tablet PO 50 mg Q6H PRN Administra
[2022-05-19 14:00] VITALS: BP 148/53; PULSE 58; RESP 18; TEMP 36.6; O2SAT 97
--- NOTE | 2022-05-19 15:48 | PM.IMPN ---
Progress Note: A&P Assessment and Plan (1) Abscess of sigmoid colon due to diverticulitis: Code(s): K57.20 - Diverticulitis of large intestine with perforation and abscess without bleeding Status: Acute Assessment and Plan: c/o abdominal pain for approximately [address] abd/pelvis showd 5.7 x 5.2 x 5 cm fluid collection abutting the sigmoid colon suspicious for abscess secondary to small bowel or sigmoid diverticulitis. WBC 10.9 on admission. s/p IR abdominal abscess drain 05/17/22 management per general surgery, including drain management Continue IV Zosyn Q6 hours, started 05/17/22. Antibiotic day 3. Transition to oral antibiotics in 24-48 hours as symptoms improve. Blood culture negative to date. Abscess gram stain without organism growth to date and culture pending. diet per general surgery. Advanced to full liquid diet today. saline locked fluids PRN PO analgesics. She has a codeine allergy but is tolerating Tramadol. (2) Irritable bowel: Qualifiers: Irritable bowel syndrome type: with both diarrhea and constipation Qualified Code(s): K58.2 - Mixed irritable bowel syndrome Code(s): K58.9 - Irritable bowel syndrome without diarrhea Status: Chronic Assessment and Plan: Chronic, holding Linzess for now. Resume at discharge. Consider decreasing dose to 72 mg every other day. (3) History of CVA (cerebrovascular accident): Code(s): Z86.73 - Personal history of transient ischemic attack (TIA), and cerebral infarction without residual deficits Status: Chronic Assessment and Plan: H/o stroke without residual. To be aware. (4) Depression with anxiety: Code(s): F41.8 - Other specified anxiety disorders Status: Chronic Assessment and Plan: Chronic, continue Lexapro Continue PO Ativan p.r.n. (5) Hypokalemia: Code(s): E87.6 - Hypokalemia Status: Acute Assessment and Plan: Potassium 3.3 on admission. 05/17/22 Magnesium 1.5, K 3.6. Patient is NPO. Give Mag sulfate 2 grams IVPB x1. Add 20 mEQ IV KCl to maintenance IV fluids. 05/18/22 K 3.1. Magnesium 2.3. Continue IV fluids with KCl 20 mEQ and give additional 40 mEQ IVPB x1 Repeat chemistry tomorrow. Stable. 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 (7) Hypoglycemia: Code(s): E16.2 - Hypoglycemia, unspecified Status: Acute Assessment and Plan: Fasting glucose 69 this morning. Patient is NPO for diverticulitis with abscess. Change IV fluids to D5NS with 20 mEQ KCl @100 mL/hour. Accu-checks Q6 hours with hypoglycemia protocol. No h/o diabetes. POC glucose stable today 05/18. Continue for additional 24 hours then dc if stable and patient is tolerating oral intake. Stable. Patient is eating now. Plan Possible discharge in 1-2 days if she is tolerating diet and pain is controlled. Time Spent With Patient Time with patient: 15 - 25 minutes Subjective Date/time seen: 05/19/22 15:48 Interval history: Patient is an 81 yo female with history of multiple abdominal surgeries, stroke, and GERD. She presented to the ED for c/o abdominal pain for approximately [address] abd/pelvis showd 5.7 x 5.2 x 5 cm fluid collection abutting the sigmoid colon suspicious for abscess secondary to small bowel or sigmoid diverticulitis. She denies nausea or vomiting. Abdominal pain is improving and located near her abscess drain. She had a BM today and is consistently preoccupied with her chronic alternating constipation with diarrhea at home and thinks it's the Linzess medication she takes. No fever, chills, diaphoresis, chest pain, or SOB. Review of Systems Review of Systems: All systems reviewed & are unremarkable except as noted in HPI and below Exam Narrative:
[2022-05-19 21:08] VITALS: BP 141/83; PULSE 75; RESP 20; TEMP 37.2; O2SAT 98
[2022-05-20] MEDS: diphenhydrAMINE HCl CAP 25 MG CAPSULE PO ×3 (01:02→22:44)
[2022-05-20 05:15] LABS: Basophils Percent Auto 0.5 % (0.2-1.2); Eosinophils Absolute Auto 0.1 K/mm3 (0-0.3); Eosinophils Percent Auto 1.7 % (0-4.4); Hematocrit 34.5 % (37.0-47.0); Hemoglobin 11.2 g/dL (12.0-15.0); Immature Granulocyte Absolute 0.04 K/mm3 (0.00-0.031); Immature Granulocyte Percent A 0.7 % (0-0.5); Lymphocytes Absolute Auto 1.37 K/mm3 (0.9-3.2); Lymphocytes Percent Auto 23.1 % (18.3-44.2); Mean Corpuscular HGB Conc 32.5 g/dl (32-36); Mean Corpuscular Hemoglobin 32.4 pg (26-34); Mean Corpuscular Volume 99.7 fl (80-100); Mean Platelet Volume 10.1 fl (7.4-10.4); Monocytes Absolute Auto 0.4 K/mm3 (0.1-0.6); Monocytes Percent Auto 7.2 % (2.6-8.5); Neutrophils Percent Auto 66.8 % (45.5-73.1); Platelet Count Result 256 k/mm3 (150-375); Red Blood Count 3.46 M/mm3 (4.2-5.4); Red Cell Distribution Width 13.8 % (11.5-14.5); White Blood Count 5.9 K/mm3 (4.5-10.0)
[2022-05-20 05:38] LABS: Alanine Aminotransferase 17 U/L (6-35); Albumin Level 2.8 g/dL (3.5-5.1); Alkaline Phosphatase 60 U/L (38-126); Anion Gap 3 mmol/L (8-16); Aspartate Amino Transferase 20 U/L (14-36); Bilirubin,Total 0.4 mg/dL (0.2-1.3); Calcium 7.8 mg/dL (8.4-10.2); Carbon Dioxide 23 mmol/L (22-30); Chloride 110 mmol/L (98-107); Estimated Glomerular Filt Rate > 60; Glucose 87 mg/dL (65-110); Potassium 3.2 mmol/L (3.4-5.0); Sodium 136 mmol/L (137-145)
[2022-05-20 06:00] VITALS: BP 128/44; PULSE 50; RESP 16; TEMP 36.6; O2SAT 97
[2022-05-20 06:45] LABS: Blood Urea Nitrogen < 2 mg/dL (7-17)
[2022-05-20 09:19] VITALS: BP 139/66
[2022-05-20] MEDS: PANTOPRAZOLE 40 MG TABLET PO (09:20)
[2022-05-20] MEDS: THYROID 30 MG TABLET 60 MG PO (09:20)
[2022-05-20] MEDS: FUROSEMIDE 40 MG TABLET PO (09:20)
--- NOTE | 2022-05-20 12:11 | PM.PNGS ---
Progress Note: A&P Assessment and Plan (1) Diverticulitis of intestine with abscess without bleeding: Code(s): K57.80 - Diverticulitis of intestine, part unspecified, with perforation and abscess without bleeding Status: Acute Assessment and Plan: exam benign, advance to heart healthy diet, cont abx, if jignesh diet will remove drain tomorrow and poss dc Subjective Subjective Date/Time Seen: 05/20/22 12:11 feels good, no pain, jignesh full liquids, wants to eat more solid food Review of Systems Review of Systems: All systems reviewed & are unremarkable except as noted in HPI and below Exam Const: General: cooperative, comfortable and no acute distress Resp: Auscultation: clear to auscultation bilaterally Cardio: Rate: regular rate Rhythm: regular rhythm GI: Inspection: normal to inspection and non-distended GI Palp: No abdominal tenderness, Yes Soft to palpation, No Tenderness to palpation present (GI), No Guarding due to palpation present (GI) and No Rigid due to palpation Other: drain c minimal serous output Objective Data Vital Signs Vital Signs: Vital Signs - 24 hr 05/19/22 14:00 05/19/22 21:08 05/19/22 20:00 Temperature 36.6 C 37.2 C Pulse Rate 58 L 75 Respiratory Rate 18 20 Blood Pressure 148/53 H 141/83 H Pulse Oximetry 97 98 Oxygen Delivery Room Air 05/20/22 06:00 05/20/22 09:19 Temperature 36.6 C Pulse Rate 50 L Respiratory Rate 16 Blood Pressure 128/44 L 139/66 Pulse Oximetry 97 Oxygen Delivery Intake/Output Intake/Output: Intake & Output 05/17/22 05/18/22 05/19/22 05/20/22 23:59 23:59 23:59 23:59 Intake Total 1650 3200 2893 800 Output Total 730 625 30 8 Balance 920 3375 2863 792 Meds/Results Medications: Active Medications Generic Name Dose Route Start Last Admin Trade Name Freq PRN Reason Stop Dose Admin Acetaminophen 1,000 mg 05/18/22 22:13 05/18/22 23:35 Acetaminophen 500 Mg Tablet PO 1,000 mg Q6H PRN Administration Mild Pain (1-3) or Fever Albuterol 2 puff 05/16/22 22:40 Albuterol Sulfate (*Sp) Aerosol 1 Puff INHALATION QID PRN Shortness Of Breath Or Wheezing Azelastine HCl 1 spray 05/17/22 09:00 05/20/22 09:21 Azelastine Hcl Nasal 0.1% 137 Mcg/Spr 30 Ml Btl NASAL Not Given BID SERGIO Dextrose 12.5 gm 05/17/22 07:47 05/17/22 08:01 Dextrose 50% 25 Gm/50 Ml Syringe IV PUSH 12.5 gm PRN PRN Administration Hypoglycemia Protocol Diphenhydramine HCl 25 mg 05/17/22 01:59 05/20/22 01:02 Diphenhydramine Hcl Cap 25 Mg Capsule PO 25 mg Q6H PRN Administration Itching Fentanyl Citrate 25 mcg 05/16/22 21:11 05/18/22 09:04 Fentanyl Citrate Inj (*Crx) 100 Mcg/2 Ml Vial IV PUSH 25 mcg Q2H PRN Administration Pain Rated 7-10 Furosemide 40 mg 05/20/22 09:00 05/20/22 09:20 Furosemide 40 Mg Tablet PO 40 mg DAILY SERGIO Administration Glucagon 1 mg 05/17/22 07:47 Glucagon For Inj 1 Mg Vial IM PRN PRN Hypoglycemia Protocol Glucose 15 gm 05/17/22 07:47 Glucose Oral Gel 15 Gm Of Glucse In 37.5 Gm Tube PO PRN PRN Hypoglycemia Protocol Piperacillin/Tazobactam/Dextrose 3.375 gm in 50 mls @ 100 mls/hr 05/17/22 00:00 05/20/22 05:20 Zosyn 3.375 Gm/D5w 50ml Pm IVPB 100 mls/hr Q6H SERGIO Administration Dextrose 1,000 mls @ 100 mls/hr 05/17/22 07:47 Dextrose 5% 1,000 Ml IVPB PRN PRN Hypoglycemia Protocol Lorazepam 0.5 mg 05/18/22 15:16 Lorazepam (*Crx) 0.5 Mg Tablet PO Q6H PRN Anxiety Meclizine HCl 25 mg 05/19/22 15:49 Meclizine Hcl 25 Mg Tablet PO TID PRN dizziness Ondansetron HCl 4 mg 05/16/22 16:47 Ondansetron Inj 4 Mg/2 Ml Vial IV PUSH Q4H PRN Nausea Pantoprazole Sodium 40 mg 05/20/22 09:00 05/20/22 09:20 Pantoprazole 40 Mg Tablet PO 40 mg DAILY SERGIO Administration Pimecrolimus 1 applic 05/17/22 09:00 05/20/22 09:21 Pimecr
[2022-05-20] MEDS: POTASSIUM CHLORIDE 20 MEQ TABLET 80 MEQ PO (12:31)
[2022-05-20] MEDS: traMADol HCL (*CRX) 50 MG TABLET PO ×2 (12:34→20:46)
[2022-05-20 14:00] VITALS: BP 110/58; PULSE 66; RESP 16; TEMP 37; O2SAT 99
--- NOTE | 2022-05-20 14:26 | PM.IMPN ---
Progress Note: A&P Assessment and Plan (1) Abscess of sigmoid colon due to diverticulitis: Code(s): K57.20 - Diverticulitis of large intestine with perforation and abscess without bleeding Status: Acute Assessment and Plan: c/o abdominal pain for approximately [address] abd/pelvis showd 5.7 x 5.2 x 5 cm fluid collection abutting the sigmoid colon suspicious for abscess secondary to small bowel or sigmoid diverticulitis. WBC 10.9 on admission. s/p IR abdominal abscess drain 05/17/22 management per general surgery, including drain management Continue IV Zosyn Q6 hours, started 05/17/22. Antibiotic day 4. abscess culture shows MSSA and Klebsiella growth. Transition to oral Levaquin 750 mg PO daily, 05/21/22 Blood culture negative to date. diet per general surgery. Monitor tolerance saline locked fluids PRN PO analgesics. She has a codeine allergy but is tolerating Tramadol. (2) Irritable bowel: Qualifiers: Irritable bowel syndrome type: with both diarrhea and constipation Qualified Code(s): K58.2 - Mixed irritable bowel syndrome Code(s): K58.9 - Irritable bowel syndrome without diarrhea Status: Chronic Assessment and Plan: Chronic, holding Linzess for now. Resume at discharge. Consider decreasing dose to 72 mg every other day. (3) History of CVA (cerebrovascular accident): Code(s): Z86.73 - Personal history of transient ischemic attack (TIA), and cerebral infarction without residual deficits Status: Chronic Assessment and Plan: H/o stroke without residual. To be aware. (4) Depression with anxiety: Code(s): F41.8 - Other specified anxiety disorders Status: Chronic Assessment and Plan: Chronic, continue Lexapro Continue PO Ativan p.r.n. (5) Hypokalemia: Code(s): E87.6 - Hypokalemia Status: Acute Assessment and Plan: Potassium 3.3 on admission. 05/17/22 Magnesium 1.5, K 3.6. Patient is NPO. Give Mag sulfate 2 grams IVPB x1. Add 20 mEQ IV KCl to maintenance IV fluids. 05/18/22 K 3.1. Magnesium 2.3. Continue IV fluids with KCl 20 mEQ and give additional 40 mEQ IVPB x1 05/20/22 K 3.2. Give 80 mEQ PO KCl. Repeat chemistry tomorrow. Stable. 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 Nicotine patch if desired while inpatient. (7) Hypoglycemia: Code(s): E16.2 - Hypoglycemia, unspecified Status: Acute Assessment and Plan: Fasting glucose 69 this morning. Patient is NPO for diverticulitis with abscess. Change IV fluids to D5NS with 20 mEQ KCl @100 mL/hour. Accu-checks Q6 hours with hypoglycemia protocol. No h/o diabetes. POC glucose stable today 05/18. Continue for additional 24 hours then dc if stable and patient is tolerating oral intake. Stable. Patient is eating now. Plan Possible discharge tomorrow if she is tolerating diet and drain able to be pulled. Time Spent With Patient Time with patient: 15 - 25 minutes Subjective Date/time seen: 05/20/22 14:26 Interval history: Patient is an 81 yo female with history of multiple abdominal surgeries, stroke, and GERD. She presented to the ED for c/o abdominal pain for approximately [address] abd/pelvis showd 5.7 x 5.2 x 5 cm fluid collection abutting the sigmoid colon suspicious for abscess secondary to small bowel or sigmoid diverticulitis. She denies nausea or vomiting. Abdominal pain is improving. She is tolerating diet and was advanced to regular diet. Drain is patent. Review of Systems Review of Systems: All systems reviewed & are unremarkable except as noted in HPI and below Exam Narrative: General: No acute distress. Mental Status/Psych: Awake, alert and oriented x3 with clear speech. Neutral mood and affect. Skin: fair, warm, and dry. LLQ abdominal drain patent with sma
[2022-05-20 20:58] VITALS: BP 134/78; PULSE 70; RESP 16; TEMP 36.4; O2SAT 97
[2022-05-21 04:52] LABS: Hematocrit 34.3 % (37.0-47.0); Mean Corpuscular HGB Conc 32.1 g/dl (32-36); Mean Corpuscular Hemoglobin 31.5 pg (26-34); Mean Corpuscular Volume 98.3 fl (80-100); Platelet Count Result 283 k/mm3 (150-375); Red Blood Count 3.49 M/mm3 (4.2-5.4); Red Cell Distribution Width 13.9 % (11.5-14.5); White Blood Count 6.1 K/mm3 (4.5-10.0)
[2022-05-21 05:02] LABS: Anion Gap 4 mmol/L (8-16); Blood Urea Nitrogen 2 mg/dL (7-17); Calcium 8.1 mg/dL (8.4-10.2); Carbon Dioxide 25 mmol/L (22-30); Chloride 110 mmol/L (98-107); Estimated Glomerular Filt Rate > 60; Glucose 86 mg/dL (65-110); Magnesium 1.6 mg/dL (1.6-2.3); Potassium 3.8 mmol/L (3.4-5.0); Sodium 139 mmol/L (137-145)
[2022-05-21] MEDS: diphenhydrAMINE HCl CAP 25 MG CAPSULE PO (05:52)
[2022-05-21] MEDS: traMADol HCL (*CRX) 50 MG TABLET PO ×2 (05:54→11:27)
[2022-05-21 06:00] VITALS: BP 133/64; PULSE 72; RESP 20; TEMP 36.6; O2SAT 97
[2022-05-21] MEDS: THYROID 30 MG TABLET 60 MG PO (09:39)
[2022-05-21] MEDS: FUROSEMIDE 40 MG TABLET PO (09:40)
[2022-05-21] MEDS: PANTOPRAZOLE 40 MG TABLET PO (09:40)
[2022-05-21] MEDS: levoFLOXacin 750 MG TABLET PO (09:40)
[2022-05-21] MEDS: PIMECROLIMUS 1% 30 GM CREAM 1 APPLIC TOPICAL (09:40)
[2022-05-21] MEDS: POTASSIUM CHLORIDE 20 MEQ TABLET.ER 40 MEQ PO (09:40)
--- NOTE | 2022-05-21 11:44 | PM.PNGS ---
Progress Note: A&P Assessment and Plan (1) Abscess of sigmoid colon due to diverticulitis: Code(s): K57.20 - Diverticulitis of large intestine with perforation and abscess without bleeding Status: Acute Assessment and Plan: doing well, drain removed, home c low fiber diet and po abx, f/u 2 wks Subjective Subjective Date/Time Seen: 05/21/22 11:44 feels good, no pain, jignesh low fiber diet, +bowel fxn Review of Systems Review of Systems: All systems reviewed & are unremarkable except as noted in HPI and below Exam Const: General: cooperative, comfortable and no acute distress Resp: Auscultation: clear to auscultation bilaterally Cardio: Rate: regular rate Rhythm: regular rhythm GI: Inspection: normal to inspection and non-distended GI Palp: No abdominal tenderness, Yes Soft to palpation, No Tenderness to palpation present (GI), No Guarding due to palpation present (GI) and No Rigid due to palpation Other: SILVERIO c minimal serous drainage - removed at bedside Objective Data Vital Signs Vital Signs: Vital Signs - 24 hr 05/20/22 14:00 05/20/22 20:58 05/21/22 06:00 Temperature 37.0 C 36.4 C 36.6 C Pulse Rate 66 70 72 Respiratory Rate 16 16 20 Blood Pressure 110/58 L 134/78 133/64 Pulse Oximetry 99 97 97 Oxygen Delivery 05/21/22 09:46 Temperature Pulse Rate Respiratory Rate Blood Pressure Pulse Oximetry Oxygen Delivery Room Air Intake/Output Intake/Output: Intake & Output 05/18/22 05/19/22 05/20/22 05/21/22 23:59 23:59 23:59 23:59 Intake Total 3200 2893 2980 530 Output Total 625 30 8 30 Balance 2215 2863 2972 500 Meds/Results Medications: Active Medications Generic Name Dose Route Start Last Admin Trade Name Freq PRN Reason Stop Dose Admin Acetaminophen 1,000 mg 05/18/22 22:13 05/18/22 23:35 Acetaminophen 500 Mg Tablet PO 1,000 mg Q6H PRN Administration Mild Pain (1-3) or Fever Albuterol 2 puff 05/16/22 22:40 Albuterol Sulfate (*Sp) Aerosol 1 Puff INHALATION QID PRN Shortness Of Breath Or Wheezing Azelastine HCl 1 spray 05/17/22 09:00 05/21/22 09:44 Azelastine Hcl Nasal 0.1% 137 Mcg/Spr 30 Ml Btl NASAL Not Given BID SERGIO Dextrose 12.5 gm 05/17/22 07:47 05/17/22 08:01 Dextrose 50% 25 Gm/50 Ml Syringe IV PUSH 12.5 gm PRN PRN Administration Hypoglycemia Protocol Diphenhydramine HCl 25 mg 05/17/22 01:59 05/21/22 05:52 Diphenhydramine Hcl Cap 25 Mg Capsule PO 25 mg Q6H PRN Administration Itching Fentanyl Citrate 25 mcg 05/16/22 21:11 05/18/22 09:04 Fentanyl Citrate Inj (*Crx) 100 Mcg/2 Ml Vial IV PUSH 25 mcg Q2H PRN Administration Pain Rated 7-10 Furosemide 40 mg 05/20/22 09:00 05/21/22 09:40 Furosemide 40 Mg Tablet PO 40 mg DAILY SERGIO Administration Glucagon 1 mg 05/17/22 07:47 Glucagon For Inj 1 Mg Vial IM PRN PRN Hypoglycemia Protocol Glucose 15 gm 05/17/22 07:47 Glucose Oral Gel 15 Gm Of Glucse In 37.5 Gm Tube PO PRN PRN Hypoglycemia Protocol Dextrose 1,000 mls @ 100 mls/hr 05/17/22 07:47 Dextrose 5% 1,000 Ml IVPB PRN PRN Hypoglycemia Protocol Levofloxacin 750 mg 05/21/22 09:00 05/21/22 09:40 Levofloxacin 750 Mg Tablet PO 05/27/22 09:01 750 mg DAILY SERGIO Administration Lorazepam 0.5 mg 05/18/22 15:16 Lorazepam (*Crx) 0.5 Mg Tablet PO Q6H PRN Anxiety Meclizine HCl 25 mg 05/19/22 15:49 Meclizine Hcl 25 Mg Tablet PO TID PRN dizziness Ondansetron HCl 4 mg 05/16/22 16:47 Ondansetron Inj 4 Mg/2 Ml Vial IV PUSH Q4H PRN Nausea Pantoprazole Sodium 40 mg 05/20/22 09:00 05/21/22 09:40 Pantoprazole 40 Mg Tablet PO 40 mg DAILY SERGIO Administration Pimecrolimus 1 applic 05/17/22 09:00 05/21/22 09:40 Pimecrolimus 1% 30 Gm Cream TOPICAL 1 applic BID SERGIO Administration Potassium Chloride 40 meq 05/21/22 08:00 05/21/22
--- NOTE | 2022-05-21 12:33 | PM.DS ---
DS: Admitting Diagnosis Discharge Date 05/21/2022 1233 Admitting Diagnosis Diverticulitis of large intestine with perforation and abscess without bleeding Irritable bowel, mixed diarrhea and constipation Hypokalemia Tobacco use DS: Discharge Diagnosis Discharge Diagnosis (1) Abscess of sigmoid colon due to diverticulitis: Code(s): K57.20 - Diverticulitis of large intestine with perforation and abscess without bleeding Status: Acute Assessment and Plan: c/o abdominal pain for approximately [address] abd/pelvis showd 5.7 x 5.2 x 5 cm fluid collection abutting the sigmoid colon suspicious for abscess secondary to small bowel or sigmoid diverticulitis. WBC 10.9 on admission. s/p IR abdominal abscess drain 05/17/22 management per general surgery, including drain management Continue IV Zosyn Q6 hours, started 05/17/22- 05/20/22 abscess culture shows MSSA and Klebsiella growth. Transition to oral Levaquin 750 mg PO daily, 05/21/22 to complete Blood culture negative to date. advanced to low fat diet with good tolerance PRN PO Tramadol for pain. She has a codeine allergy but is tolerating Tramadol. (2) Irritable bowel: Qualifiers: Irritable bowel syndrome type: with both diarrhea and constipation Qualified Code(s): K58.2 - Mixed irritable bowel syndrome Code(s): K58.9 - Irritable bowel syndrome without diarrhea Status: Chronic Assessment and Plan: Chronic, holding Linzess during admission. Resumed at discharge. Recommended decreasing dose to 72 mg every other day. (3) Hypokalemia: Code(s): E87.6 - Hypokalemia Status: Acute Assessment and Plan: Potassium 3.3 on admission. 05/17/22 Magnesium 1.5, K 3.6. Patient is NPO. Give Mag sulfate 2 grams IVPB x1. Add 20 mEQ IV KCl to maintenance IV fluids. 05/18/22 K 3.1. Magnesium 2.3. Continue IV fluids with KCl 20 mEQ and give additional 40 mEQ IVPB x1 05/20/22 K 3.2. Give 80 mEQ PO KCl. 05/21/22 K 3.8 and stable. (4) Tobacco use: Code(s): Z72.0 - Tobacco use Status: Chronic Assessment and Plan: patient smokes 1/2 pack for 65 years with 32.5 pack-year. 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 Nicotine patch if desired while inpatient. (5) Hypoglycemia: Code(s): E16.2 - Hypoglycemia, unspecified Status: Acute Assessment and Plan: Fasting glucose 69 this morning. Patient is NPO for diverticulitis with abscess. Change IV fluids to D5NS with 20 mEQ KCl @100 mL/hour. Accu-checks Q6 hours with hypoglycemia protocol. No h/o diabetes. POC glucose stable today 05/18. Continue for additional 24 hours then dc if stable and patient is tolerating oral intake. Stable. Patient is eating now and glucose level >70 mg/dL and without s/s hypoglycemia. DS: Summary Hospital Course Reason for hospitalization: abdominal pain Hospital Course: Iqra Yeboah is an 81 yo female with history of multiple abdominal surgeries, stroke, and GERD. She presented to the ED for c/o abdominal pain for approximately [address] abd/pelvis showd 5.7 x 5.2 x 5 cm fluid collection abutting the sigmoid colon suspicious for abscess secondary to small bowel or sigmoid diverticulitis. Lab work showed WBC 10.5, Na 133, K 3.3, glucose 64, and CRP 12.8. She was admitted to the medical floor. General surgery was consulted. She was placed on bowel rest with IV fluids, IV analgesics and IV Zosyn 3.375 mg Q6 hours. She had an abscess drain placed on 05/17/22. She was treated with NS IV fluids initially, but had an episode of hypoglycemia with glucose 64 mg/dL. she was then changed to D5NS fluids. Bedside glucose was monitored and stable. She had no further episodes of hypoglycemia on fluids or after diet was advanced. Potassium was repleted as needed. Her diet was slowly advanced. Abscess cultures showed staph aureus and klebsiella pneumo growth. She was transitioned to oral Levaquin 750 mg PO daily on 05/21/22 to complete total 10 day antibi
== END 2022-05-21 13:20 | disposition home or self-care (01) | DRG 391 ==
LOC: ANHED 17:37 → ANH2MED 17:43
PROVIDERS: Nurse Practitioner; Radiology Diagnostic Radiology; Surgery; Admitting Provider Internal Medicine; Emergency Provider Emergency Medicine; PCP Hospitalist; Visit Provider Nurse Practitioner Family
PROC: 0W9G30Z Drainage of Peritoneal Cavity with Drainage Device, Percutaneous Approach (ICD-10-PCS; principal; 2022-05-17 12:30)
DX: K57.20 Diverticulitis of large intestine with perforation and abscess without bleeding (principal); K65.1 Peritoneal abscess; K21.9 Gastro-esophageal reflux disease without esophagitis; K58.9 Irritable bowel syndrome, unspecified; E87.6 Hypokalemia; E16.2 Hypoglycemia, unspecified; B96.1 Klebsiella pneumoniae [K. pneumoniae] as the cause of diseases classified elsewhere; B95.61 Methicillin susceptible Staphylococcus aureus infection as the cause of diseases classified elsewhere; F32.A Depression, unspecified; R29.6 Repeated falls; F41.9 Anxiety disorder, unspecified; Z20.822 Contact with and (suspected) exposure to COVID-19; F17.210 Nicotine dependence, cigarettes, uncomplicated; Z86.73 Personal history of transient ischemic attack (TIA), and cerebral infarction without residual deficits; Z86.010 Personal history of colon polyps
CPT/HCPCS: 36415; 71275; 74177; 75989; 80048; 80053; 81001; 82948; 83605; 83690; 83735; 85025; 85027; 85610; 85730; 86140; 87040; 87070; 87075; 87077; 87086; 87147; 87181; 87186; 87205; 87636; 96374; 96375; 99285; A9270; C1729; C1769; J0131; J2250; J2405; J2543; J3010; J3475; J3480; J7030; J7040; Q9967

== ENCOUNTER 2022-06-19 07:29 | Outpatient (CLI) | payer MEDICARE, SELFPAY ==
--- NOTE | ~2022-06-19 | CT_ITS ---
CT of the Abdomen and Pelvis: Indication: Sigmoid abscess Technique: 2.5 mm axial scans were obtained through the abdomen and pelvis following intravenous adm inistration of 100 cc of Omnipaque 350. Dose reduction technique was used on this scan by utilizing a utomated exposure control and iterative reconstruction technique. The dose-length product (DLP) was 3 33.57 mGy-cm. COMPARISON: 05/16/2022 Findings: Scans through the lung bases are unremarkable. The liver, spleen, pancreas, adrenals and kidneys are within normal limits. Cholecystectomy clips are present. No evidence of aortic aneurysm. No lymphadenopathy. Previously noted abscess is completely resolved. No definite bowel obstruction seen, though there is large amount of stool throughout the large bowel. Small bowel loops are nondistended. Images through the pelvis were performed. Urinary bladder unremarkable. Patient is post hysterectomy. No pelvic mass seen. No ascites. Impression: Previously noted abscess is completely resolved. Large amount of stool throughout large bowel suggests constipation. Reviewed, dictated and finalized at [facility]. 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 Large amount of stool throughout large bowel suggests constipation.
[2022-06-19 08:43] LABS: Hematocrit 40.9 % (37.0-47.0); Hemoglobin 12.8 g/dL (12.0-15.0); Mean Corpuscular HGB Conc 31.3 g/dl (32-36); Mean Corpuscular Hemoglobin 30.8 pg (26-34); Mean Corpuscular Volume 98.3 fl (80-100); Mean Platelet Volume 9.9 fl (7.4-10.4); Platelet Count Result 247 k/mm3 (150-375); Red Blood Count 4.16 M/mm3 (4.2-5.4); Red Cell Distribution Width 14.7 % (11.5-14.5); White Blood Count 5.4 K/mm3 (4.5-10.0)
[2022-06-19 08:53] LABS: Alanine Aminotransferase 19 U/L (6-35); Albumin Level 3.8 g/dL (3.5-5.1); Alkaline Phosphatase 76 U/L (38-126); Anion Gap 5 mmol/L (8-16); Aspartate Amino Transferase 21 U/L (14-36); Bilirubin,Total 0.4 mg/dL (0.2-1.3); Blood Urea Nitrogen 17 mg/dL (7-17); Carbon Dioxide 25 mmol/L (22-30); Chloride 104 mmol/L (98-107); Estimated Glomerular Filt Rate > 60; Glucose 91 mg/dL (65-110); Potassium 4.4 mmol/L (3.4-5.0); Sodium 134 mmol/L (137-145)
== END 2022-06-19 07:30 | disposition home or self-care (01) ==
LOC: ANHIMG 07:33
PROVIDERS: PCP Hospitalist; Visit Provider Internal Medicine Gastroenterology
DX: K57.92 Diverticulitis of intestine, part unspecified, without perforation or abscess without bleeding (principal); K21.9 Gastro-esophageal reflux disease without esophagitis
CPT/HCPCS: 36415; 74177; 80053; 85027; Q9967

== ENCOUNTER 2022-08-15 01:44 | Day surgery (SDC) | payer MEDICARE, SELFPAY ==
[2022-08-04 13:57] VITALS: BMI 27.9
[2022-08-15 08:22] VITALS: BP 123/95; PULSE 95; RESP 20; TEMP 36.2; O2SAT 98
[2022-08-15] MEDS: LACTATED RINGERS 1,000 ML 150 ML IV CONT (08:42)
--- NOTE | 2022-08-15 09:49 | WPDANESEPPF ---
Anes - Initial Pre Proc Eval Procedure: Operation Date: 08/15/22 09:45 Proposed Procedures p Esophagogastroduodenoscopy & Colonoscopy - Ye Horton MD Date/Time: 08/15/22 09:49 Surgeon: Ye Horton MD Pre Op Diagnosis: GERD,RUQP,Diverticulitis Patient Data Age: 81 Gender: F Height: 1.5 m Weight: 57.5 kg Last Vital Signs Temp 36.2 C L 08/15/22 08:22 Pulse 95 08/15/22 08:22 Resp 20 08/15/22 08:22 BP 123/95 H 08/15/22 08:22 Pulse Ox 98 08/15/22 08:22 O2 Del Method Room Air 08/15/22 08:22 Allergies Allergy/AdvReac Type Severity Reaction Status Date / Time codeine Allergy Mild Rash Verified 08/15/22 08:21 Home Medications Medication Instructions Recorded Confirmed Type albuterol sulfate 90 mcg/actuation 2 puff inhalation QID PRN 04/02/20 08/04/22 History aerosol inhaler (Ventolin HFA) Shortness Of Breath Or Wheezing cyanocobalamin (vitamin B-12) 1,000 mcg IM MONTHLY 04/02/20 08/04/22 History 1,000 mcg/mL injection solution furosemide 40 mg tablet 40 mg PO DAILY 04/02/20 08/04/22 History azelastine 0.05 % eye drops 1 drp EACH EYE DAILY 05/16/22 08/04/22 History azelastine 137 mcg (0.1 %) nasal 1 spray intranasal BID 05/16/22 08/04/22 History spray aerosol tramadol 50 mg tablet 50 mg PO Q6H PRN Pain (Scale Score 05/16/22 08/04/22 History 4-6) thyroid (pork) 60 mg tablet 60 mg PO DAILY 05/17/22 08/04/22 History (Macy Thyroid) potassium chloride 20 mEq 40 meq PO DAILY@0800 14 days #28 05/21/22 08/04/22 Rx tablet,extended release (K-Tab) tabs linaclotide 290 mcg capsule 290 mcg PO DAILY 07/06/22 08/04/22 History (Linzess) Patient hx anesthesia problems: none Family hx anesthesia problems: none Results Review: All pre-operative results and documents have been reviewed as part of the pre-operative evaluation. [facility] Past Medical History Medical History Abdominal pain Adenomatous colon polyp Anxiety and depression Brain tumor Benign Choking due to food (regurgitated) CVA (cerebral vascular accident) Depression with anxiety Frequent falls GERD (gastroesophageal reflux disease) History of esophageal dilatation Irritable bowel Irritable bowel syndrome with constipation RUQ pain Swelling of lower extremity TIA (transient ischemic attack) Surgical History Surgical History H/O colonoscopy with polypectomy H/O: hysterectomy History of bladder suspension procedure History of common bile duct surgery History of pancreatic surgery History of resection of liver Hx of cholecystectomy Family History Family History Son Cancer Daughter Cancer Son Acute myocardial infarction Social History Social History Social History: The patient lives home alone and is . The patient stated that 2 of her children have and her daughter is dying from cancer now. She only had 3 children. Her grandson helps take care of her. Patient is down to less than half a pack a cigarettes a day. Code status full code Smoking packs per day: 0.5 Smoking cigarettes per day: 10.0 Years smoked: 65 Smoking pack-years: 32.50 Smoking status: Current every day smoker Tobacco type: cigarettes Additional smoking assessment comments: smokes more when in pain Alcohol intake: never Substance use: never Substance use type: does not use Lack of Transportation: No Lack of Food: Never True Current Housing: I Have Housing Concerned About Future Housing: No Difficulty Paying Gas/Electric Bills: No Difficulty Paying for Meds: No Currently Unemployed: No Education: Associate Degree Difficulty w/ Childcare or Family Care: No Living arrangements: alone Occupation/Education:
--- NOTE | 2022-08-15 09:53 | PM.HPGS ---
History of Present Illness History of Present Illness Consent: Risks, benefits, and alternatives have been discussed and questions answered. Patient agrees to proceed with procedure. Chief complaint: GERD,RUQP,Diverticulitis Narrative: Iqra Yeboah is a 81 year old female here for egd and colonoscopy. 04/2022 sigmoid abscess probably due to diverticulitis treated by interventional radiology with drainage and antibiotics with repeat CT scan showed no more abscess and also she has constipation. Still intermittent pain, ibs-c on linzess. Last colonoscopy probably about 3 years ago. Review of Systems Constitutional: Constitutional: Denies headache(s) and Denies weakness Eyes: Eyes: Denies blurry vision ENT: Reports Normal hearing present, Denies headache(s) and Denies neck pain Cardiovascular: Cardiovascular: Denies chest pain and Denies dyspnea Respiratory: Respiratory: Denies dyspnea Gastrointestinal: Gastrointestinal: Reports no additional gastrointestinal complaints Genitourinary: Genitourinary: Denies dysuria Musculoskeletal: Musculoskeletal: Denies neck pain Integumentary/Breasts: Skin/Breast: Denies dry skin Neurologic: Reports Normal hearing present, Denies headache(s) and Denies weakness Psychiatric: Psychiatric: Denies anxiety Endocrine: Endocrine: Denies change in body appearance Hematologic/Lymphatic: Hematologic/Lymphatic: Denies easy bleeding Allergic/Immunologic: Allergic/Immunologic: Denies urticaria PMFSH Past Medical History Medical History Abdominal pain Adenomatous colon polyp Anxiety and depression Brain tumor Benign Choking due to food (regurgitated) CVA (cerebral vascular accident) Depression with anxiety Frequent falls GERD (gastroesophageal reflux disease) History of esophageal dilatation Irritable bowel Irritable bowel syndrome with constipation RUQ pain Swelling of lower extremity TIA (transient ischemic attack) Surgical History Surgical History H/O colonoscopy with polypectomy H/O: hysterectomy History of bladder suspension procedure History of common bile duct surgery History of pancreatic surgery History of resection of liver Hx of cholecystectomy Family History Family History Son Cancer Daughter Cancer Son Acute myocardial infarction Social History Social History Social History: The patient lives home alone and is . The patient stated that 2 of her children have and her daughter is dying from cancer now. She only had 3 children. Her grandson helps take care of her. Patient is down to less than half a pack a cigarettes a day. Code status full code Smoking packs per day: 0.5 Smoking cigarettes per day: 10.0 Years smoked: 65 Smoking pack-years: 32.50 Smoking status: Current every day smoker Tobacco type: cigarettes Additional smoking assessment comments: smokes more when in pain Alcohol intake: never Substance use: never Substance use type: does not use Lack of Transportation: No Lack of Food: Never True Current Housing: I Have Housing Concerned About Future Housing: No Difficulty Paying Gas/Electric Bills: No Difficulty Paying for Meds: No Currently Unemployed: No Education: Associate Degree Difficulty w/ Childcare or Family Care: No Living arrangements: alone Occupation/Education: retired Gender identity (if verbalized by the patient): Female Spiritual care concerns: No Meds Home Medications and Allergies Home Medications Medication Instructions Recorded Confirmed Type albuterol sulfate 90 mcg/actuation 2 puff inhalation QID PRN 04/02/20 08/04/22 History aerosol inhaler (Ventolin HFA) Shortness Of Breath Or Wheezing cyanocobalamin (vitami
--- NOTE | 2022-08-15 10:12 | SUR.OPER ---
EGD began at 0957. Colonoscopy began at 1010.
[2022-08-15 10:33] VITALS: BP 83/41; PULSE 66; RESP 18; O2SAT 100
[2022-08-15 10:43] VITALS: BP 119/56; PULSE 63; RESP 17; O2SAT 100
== END 2022-08-15 11:06 | disposition home or self-care (01) ==
PROVIDERS: PCP Hospitalist; Visit Provider Internal Medicine Gastroenterology
PROC: 0DJ08ZZ Inspection of Upper Intestinal Tract, Via Natural or Artificial Opening Endoscopic (ICD-10-PCS; CPT 43235; principal; 2022-08-15 09:45)
DX: D12.2 Benign neoplasm of ascending colon (principal); K64.8 Other hemorrhoids; K58.1 Irritable bowel syndrome with constipation; Z98.0 Intestinal bypass and anastomosis status; Z90.49 Acquired absence of other specified parts of digestive tract; K29.70 Gastritis, unspecified, without bleeding; K21.9 Gastro-esophageal reflux disease without esophagitis; Z87.19 Personal history of other diseases of the digestive system; F41.8 Other specified anxiety disorders; Z86.73 Personal history of transient ischemic attack (TIA), and cerebral infarction without residual deficits; F17.210 Nicotine dependence, cigarettes, uncomplicated; Z79.51 Long term (current) use of inhaled steroids
CPT/HCPCS: 45385; 43239; 88305; J2704; J7120